=== PATIENT | female | born 1985 | race Caucasian/White ===

== ENCOUNTER 2023-05-19 11:22 | Outpatient (CLI) | payer OTHER, SELFPAY ==
[2023-05-19 12:17] LABS: Beta HCG Quantitative < 2.39 mIU/ML
== END 2023-05-19 11:23 | disposition home or self-care (01) ==
PROVIDERS: Visit Provider Obstetrics & Gynecology
DX: N93.9 Abnormal uterine and vaginal bleeding, unspecified (principal)
CPT/HCPCS: 36415; 84702

== ENCOUNTER 2023-07-08 09:39 | Emergency (ER) | payer OTHER, SELFPAY ==
--- NOTE | ~2023-07-08 | XR_ITS ---
EXAMINATION: XR chest 2V DATE: 07/08/2023 10:11 INDICATION: Shortness of breath and cough. TECHNIQUE: Frontal and lateral views of the chest were obtained. COMPARISON: None. FINDINGS: There are airspace opacities in posterior segment right upper lobe, consistent with pneumon ia. No pleural effusion or pneumothorax. The heart size is normal. IMPRESSION: 1. Right upper lobe pneumonia. Reviewed, dictated and finalized at location A.
--- NOTE | 2023-07-08 09:47 | ED.URI ---
HPI - URI/Sore Throat General Chief Complaint: Upper Respiratory Infection Stated Complaint: Cough,Congestion,Headache Time Seen by Provider: 07/08/23 10:18 Source: patient, RN notes reviewed and old records reviewed Mode of arrival: ambulatory Limitations: no limitations History of Present Illness HPI Narrative: 38-year-old female presents to the [facility] with complaints of cough, congestion and headache since either Monday or Monday 3-4 days. Reports that she was seen at a local emergency room, tested for flu and COVID which she reports as negative Reports fevers as high as 102. Has taken Mucinex as well as black elderberry Related Data Allergies Allergy/AdvReac Type Severity Reaction Status Date / Time No Known Allergies Allergy Unknown Verified 07/08/23 09:46 Review of Systems Review of Systems: All systems reviewed & are unremarkable except as noted in HPI and below Constitutional: Constitutional: Reports no additional constitutional complaints Eyes: Eyes: Reports no additional eye complaints ENT: Reports as per HPI Cardiovascular: Cardiovascular: Reports no additional cardiovascular complaints, Denies chest pain and Denies dyspnea Respiratory: Respiratory: Reports as per HPI, Reports chest congestion, Reports cough and Reports dyspnea Gastrointestinal: Gastrointestinal: Reports no additional gastrointestinal complaints, Denies abdominal pain, Denies nausea and Denies vomiting Musculoskeletal: Musculoskeletal: Reports no additional musculoskeletal complaints Integumentary/Breasts: Skin/Breast: Reports system reviewed and no additional complaints, except as docu Neurologic: Reports system reviewed and no additional complaints, except as documented Psychiatric: Psychiatric: Reports no additional psychiatric complaints Allergic/Immunologic: Allergic/Immunologic: Reports no additional allergic/immunologic complaints PMFSH Comments At the time of my signature, I reviewed and agree with the nursing past medical, surgical, social, and family history. There is no relevant family history pertinent to the patient complaint. Exam Const: General: cooperative, healthy appearing, comfortable, no acute distress, well developed, alert and well nourished Nutritional Appearance: well nourished and obese Orientation/consciousness: patient oriented x3 Limitations: no limitations HENMT: Head: normal to inspection Ears: hearing grossly normal bilaterally, external ears normal, TM's normal bilaterally, EAC's normal, mastoids normal and no periauricular adenopathy Face/Nose/Sinus: Normal external nose present, Normal nares present, Normal nasal mucous membranes and turbinates present, normal facial exam and face symmetric Face and sinus: normal facial exam and face symmetric Throat: posterior oropharynx normal, uvula midline and no uvular edema Eyes: General: appearance normal, both eyes and all related structures Alignment and Position: alignment normal Periorbital: periorbital findings normal Pupils: Equal, round and reactive pupils present EOM: EOMs intact bilaterally Neck: Neck: normal visual inspection, full ROM, no lymphadenopathy and no meningeal signs Chest: Chest palpation & inspection: normal inspection of the chest Resp: Effort & Inspection: normal respiratory effort and able to speak in complete sentences Auscultation: crackles on the right in the mid lung marks and in the upper lung marks, no rales, no rhonchi and no wheezes Cardio: Rate: regular rate Rhythm: regular rhythm Skin: General skin exam: normal color and no rashes or lesions noted Lesions: no lesions Rashes: no rashes Trauma: no lacerations or abrasions Wounds: no wounds Neuro: General: patient oriented x3, gait normal, tone normal, moves all extremities and no meningeal signs Cranial nerves: Yes Equal, round and reactive pupils present Cognition (Neuro): normal cognition Speech: normal speech Gait exam (Neuro): Normal gait present Ex
[2023-07-08 09:55] VITALS: BP 130/72; PULSE 95; RESP 16; TEMP 36.8; O2SAT 99
== END 2023-07-08 10:42 | disposition home or self-care (01) ==
PROVIDERS: Emergency Provider Nurse Practitioner
DX: J18.1 Lobar pneumonia, unspecified organism (principal); Z86.16 Personal history of COVID-19
CPT/HCPCS: 71046; 99213; G0463

== ENCOUNTER 2023-08-10 09:47 | Outpatient (CLI) | payer OTHER, SELFPAY | END 2023-08-10 09:48 | disposition home or self-care (01) | PROVIDERS: Visit Provider Obstetrics & Gynecology | DX: N92.0 Excessive and frequent menstruation with regular cycle (principal); Z01.818 Encounter for other preprocedural examination | CPT/HCPCS: 36415; 86850; 86900; 86901 ==

== ENCOUNTER 2023-08-16 00:19 | Day surgery (SDC) | payer OTHER, SELFPAY ==
[2023-08-09 14:42] VITALS: BMI 33.3
--- NOTE | 2023-08-09 14:48 | PC.NURSE ---
Report to the Outpatient Waiting Room, entrance under the green pavilion located off [facility], at time _0830_ on date _[id number]_. Planned Procedure Time: _1030_. Time changes happen often and if your time is changed the preop area will call you the afternoon before. - You and your visitor will be asked to self-screen and do not enter if you have any COVID symptoms. - A mask is optional within the hospital at this time. Patients may have clear liquids (water, carbonated beverages, clear teas, apple juice) until 3 hours prior to surgery with a maximum of 20 ounces. - No food from midnight until time of surgery Take the following medications with a SIP of water the morning of surgery: ___None DO NOT STOP ANY OF YOUR OTHER PRESCRIPTION MEDICATIONS PRIOR TO SURGERY ?EXCEPT THE FOLLOWING Medications to discontinue per physician None Date to take last dose Please no make-up, nail ukrainian, hairspray, perfume, deodorant, or body powder the day of surgery. No jewelry (including any body piercings) or valuables the day of surgery, leave them at home. Please take a shower or bath the night before, or the morning of, surgery with an antibacterial soap. Wear comfortable, loose fitting clothing. - Jewelry must be removed prior to entering the operating room. Rings and piercings that are not removed may be cut off. - The hospital will not accept responsibility for valuables. - Please leave all valuables, including medications, at home the day of surgery. If you are going home after surgery, a licensed services delivery driver must drive you home. - NO public transportation without another adult if you receive anesthesia. - We recommend that an adult stay with you for 24 hours following discharge. - We also recommend that you do not drive, make important decision, drink alcoholic beverages, or take any drugs that were not prescribed by your health care provider for at least 24 hours after your discharge time. Follow any additional instructions given to you from your surgeon. If you or anyone in your household have experienced Covid symptoms in the past week, please notify your surgeon or the nurse liaison at the phone number below for possible testing. Telephone instructions given to _Bernie_and asked if any additional questions and then verbalized understanding. Patient advised to call surgeon office or pre surgery nurse liaison [phone] if any additional questions.
[2023-08-16] VITALS (12 sets, daily range): BP systolic 101–152; BP diastolic 56–73; PULSE 64–85; RESP 12–20; TEMP 36.3–36.9; O2SAT 97–100; BMI 32.1
--- NOTE | 2023-08-16 08:58 | WPDANESEPPF ---
Anes - Initial Pre Proc Eval Procedure: Operation Date: 08/16/23 10:30 Proposed Procedures p Total Laparoscopic Hysterectomy with Bilateral Salpingectomy - Lasha Montero MD Date/Time: 08/16/23 08:58 Surgeon: Lasha Montero MD Pre Op Diagnosis: menorrhagia Patient Data Age: 38 Gender: F Height: 1.69 m Weight: 95 kg Allergies Allergy/AdvReac Type Severity Reaction Status Date / Time No Known Allergies Allergy Unknown Verified 08/09/23 14:42 Home Medications Medication Instructions Recorded Confirmed Type No Home Medications 08/09/23 08/09/23 History Patient hx anesthesia problems: none Family hx anesthesia problems: none Results Review: All pre-operative results and documents have been reviewed as part of the pre-operative evaluation. [facility] Social History Social History Smoking status: Never smoker Living arrangements: with family Spiritual care concerns: No Anes - Eval Final PreProcedure Day of Procedure 08/16/23 08:58 Patient weight: overweight Heart: regular rate and rhythm Lungs: clear to auscultation Airway: Mallampati scale class II Neurological: alert and oriented Last oral intake: >/= 8 hours ASA classification: II Emergent: no Anesthetic plan: proceed Anesthesia type and monitoring: general ETT and standard monitoring Results Review: All pre-operative results and documents have been reviewed as part of the pre-operative evaluation. Informed Consent: The patient's anesthetic plan and its attendant risks and benefits were discussed with the patient/family/POA. Questions were solicited and answers provided to the satisfaction of the patient/family/POA.
--- NOTE | 2023-08-16 09:08 | WPDHPUPDATE1 ---
History and Physical Update Update Date/Time: 08/16/23 09:08 History and Physical has been reviewed, including an updated exam of the patient. There are NO changes in the patient's condition. Risks, benefits, and alternatives have been discussed and questions answered. Patient agrees to proceed with procedure.
[2023-08-16] MEDS: LACTATED RINGERS 1,000 ML 30 ML IV CONT ×3 (09:10→11:45)
[2023-08-16] MEDS: KETOROLAC 15 MG/ML VIAL (*BKC) IV PUSH (09:19)
[2023-08-16] MEDS: ACETAMINOPHEN 500 MG TABLET 1000 MG PO (09:19)
[2023-08-16] MEDS: ceFAZolin 2 GM/D5W 50 ML 2 GM/50 ML BAG IVPB (09:34)
[2023-08-16] MEDS: ceFAZolin SODIUM 1 GM VIAL (10:04)
[2023-08-16] MEDS: METHYLENE BLUE 0.5% INJ 10 ML AMPULE IRRIGATION (10:47)
--- NOTE | 2023-08-16 11:34 | W.PM.PROC2 ---
Procedure Note - Detailed Date of Procedure 08/16/23 Pre-op Diagnosis menorrhagia Post-op Diagnosis Same Procedure Performed Total laparoscopic hysterectomy and bilateral salpingectomy. Surgeon Lasha Montero MD Anesthesia General Findings enlarged uterus, normal appearing fallopian tubes and ovaries. Normal vulva, vagina, cervix. Description of Procedure This patient was taken to the operating room. She was prepped and draped in the dorsal lithotomy position after induction of general anesthesia. The uterine manipulator and Katie cup were placed. This was done with a speculum and tenaculum. The speculum was placed. The cervix was grasped with a tenaculum. The stay sutures were placed at 3 and 9:00 a.m.. The stay sutures of 0 Vicryl were brought through the appropriately sized Katie cup. The tip of the TIMO manipulator was placed in the intrauterine cavity. The cup was slid into place around the cervix and into the fornices. It was locked into place. The sutures were then wrapped around the handle and tied under tension. A 5 mm skin incision was made in the left upper quadrant the abdomen. A 5 mm trocar was inserted into the intrauterine cavity under direct visualization of the scope. Pneumoperitoneum was achieved. A left lower quadrant 11 mm incision was made with scalpel. An 11 mm trocar was inserted into the anterior abdominal cavity under direct visualization the scope. A 5 mm infraumbilical incision was made with a scalpel and a 5 mm trocar was inserted the intra-abdominal cavity under direct visualization of the scope. Bilateral ureteral lysis was performed. This was done from the pelvic brim down to the uterine artery. This was done with careful dissection using sharp and blunt dissection. The fallopian tubes were removed bilaterally. The mesosalpinx around the fallopian tubes were cauterized transected with LigaSure cautery. This was done in a bilateral fashion from the ovary to the uterine cornua. The fallopian tube was transected at the uterine cornu and amputated bilaterally. The tube was taken out the left lower quadrant trocar site. In a stepwise fashion along the lateral aspects of the uterus the round ligament and broad ligaments were cauterized transected down to the level of the uterine arteries. A bladder flap was created in the bladder was moved distally to the end of the cervix and over the Katie cup. The bilateral uterine arteries were cauterized and transected. Colpotomy was then performed. In a circumferential fashion the vagina was transected using unipolar cautery. The incision was made down on the Katie cup. when the colpotomy was completed, the uterus and cervix were taken out through the vagina. A pneumo occluder was placed in the vagina. The vaginal cuff was closed with a 0 V lock suture in a running fashion. The pelvis was irrigated with copious amounts antibiotic irrigation. The ureters were again examined and found to be intact and flowing freely under the uterine arteries into the bladder. The bladder was intact. It was examined directly. Cystoscopy was performed after administration of methylene blue. The cystoscope was inserted. Bladder was distended with fluid. The ureteric meatus was observed bilaterally. Blue fluid was seen to egress bilaterally. The bladder was drained and the cystoscope was withdrawn. The vagina was irrigated with Betadine solution after removal of the Pneumo occluder. The patient was taken to recovery room. She was stable condition. Sponge lap and needle counts were correct x2. Drains Yes Packing No Pathology Yes Complications No immediate complications Condition Stable Disposition Floor
[2023-08-16] MEDS: ONDANSETRON INJ 4 MG/2 ML VIAL IV PUSH (12:08)
--- NOTE | 2023-08-16 12:30 | PC.NURSE ---
This patient, Bernie Melgar, was received from PACU on 08/16/23 at 1230. Patient oriented to unit policies and routines
[2023-08-16] MEDS: DEXTROSE 5%/0.45% SOD CHL 1,000 ML 125 ML IV CONT ×2 (12:40→21:20)
[2023-08-16] MEDS: KETOROLAC 30 MG/ML VIAL (*BKC) IV PUSH ×2 (12:54→18:52)
[2023-08-16] MEDS: diphenhydrAMINE HCl INJ 50 MG/ML VIAL 25 MG IV PUSH (14:14)
[2023-08-16] MEDS: SIMETHICONE 80 MG TAB.CHEW PO (18:52)
[2023-08-17 03:18] VITALS: BP 125/73; PULSE 73; RESP 12; TEMP 37.1; O2SAT 99
[2023-08-17] MEDS: HYDROcodone/acetaminophen (*CRX) 5-325 MG TABLET 1 TAB PO ×2 (05:12→09:06)
[2023-08-17] MEDS: SIMETHICONE 80 MG TAB.CHEW PO ×2 (05:13→09:06)
--- NOTE | 2023-08-17 08:34 | PM.GYNPNOP ---
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- PN:Subj Post-Op Subjective Date/time seen: 08/17/23 08:34 Subjective: patient reports feeling better, patient has no complaints and pain is well controlled Exam Const: General: healthy appearing, comfortable and no acute distress Resp: Auscultation: clear to auscultation bilaterally, no rales, no rhonchi and no wheezes Cardio: Rate: regular rate Heart sounds: no click, no murmurs and no rubs GI: Inspection: non-distended Auscultation: normal bowel sounds Extrem: General: normal to inspection, no pedal edema and no calf tenderness [employer]LL[employer] SK[employer] REPAIRER - PN: Obj Data Vital Signs Vital Signs: Vital Signs - 24 hr 08/16/23 08:45 08/16/23 11:18 08/16/23 11:30 Temperature 98.2 F 97.3 F L Pulse Rate 85 64 69 Respiratory Rate 14 14 13 Blood Pressure 121/66 121/56 L 110/64 Pulse Oximetry 100 98 97 Oxygen Delivery Room Air Simple Face Mask Simple Face Mask Oxygen Flow Rate 10 10 08/16/23 11:45 08/16/23 12:00 08/16/23 12:15 Temperature Pulse Rate 65 68 72 Respiratory Rate 13 19 18 Blood Pressure 152/73 H 101/60 106/61 Pulse Oximetry 97 99 100 Oxygen Delivery Room Air Room Air Room Air Oxygen Flow Rate 08/16/23 12:22 08/16/23 12:35 08/16/23 16:40 Temperature 97.7 F 98.5 F Pulse Rate 71 73 82 Respiratory Rate 20 16 16 Blood Pressure 103/58 L 105/68 113/70 Pulse Oximetry 99 100 97 Oxygen Delivery Room Air Oxygen Flow Rate 08/16/23 10:55 08/16/23 18:25 08/16/23 22:55 Temperature 98.4 F 98.3 F 98.4 F Pulse Rate 74 74 74 Respiratory Rate 18 12 18 Blood Pressure 131/68 125/60 131/68 Pulse Oximetry 97 99 97 Oxygen Delivery Oxygen Flow Rate 08/17/23 03:18 Temperature 98.8 F Pulse Rate 73 Respiratory Rate 12 Blood Pressure 125/73 Pulse Oximetry 99 Oxygen Delivery Oxygen Flow Rate Intake/Output Intake/Output: Intake & Output 08/14/23 08/15/23 08/16/23 08/17/23 23:59 23:59 23:59 23:59 Intake Total 2100 1400 Output Total 2575 1400 Balance -475 0 Meds/Results Medications: Active Medications Generic Name Dose Route Start Last Admin Trade Name Freq PRN Reason Stop Dose Admin Hydrocodone Bitart/Acetaminophen 1 tab 08/16/23 12:26 08/17/23 05:12 Hydrocodone/Acetaminophen (*Crx) 5-325 Mg Tablet PO 1 tab Q3H PRN Administration Pain Rated 5 or Less Hydrocodone Bitart/Acetaminophen 1 tab 08/16/23 12:26 Hydrocodone/Acetaminophen (*Crx) 10-325 Mg Tablet PO Q3H PRN Pain Rated 6 or Greater Ibuprofen 600 mg 08/16/23 12:26 Ibuprofen 600 Mg Tablet PO Q6H PRN Cramping Ketorolac Tromethamine 30 mg 08/16/23 12:26 08/16/23 18:52 Ketorolac 30 Mg/Ml Vial (*Bkc) IV PUSH 08/21/23 12:25 30 mg Q6H PRN Administration Pain Rated 4-6 Naloxone HCl 0.1 mg 08/16/23 12:26 Naloxone Hcl 0.4 Mg/Ml Vial IV PUSH Q2M PRN Respiratory rate less than 10 Ondansetron HCl 4 mg 08/16/23 12:26 Ondansetron Inj 4 Mg/2 Ml Vial IV PUSH Q6H PRN Nausea And Vomiting Simethicone 80 mg 08/16/23 12:26 08/17/23 05:13 Simethicone 80 Mg Tab.Chew PO 80 mg TIDWM CRISSY Administration
[2023-08-17 08:45] VITALS: BP 117/72; PULSE 80; RESP 16; TEMP 36.7; O2SAT 100
[2023-08-17] MEDS: IBUPROFEN 600 MG TABLET PO (09:07)
== END 2023-08-17 12:42 | disposition home or self-care (01) ==
LOC: ANHSURGERY 08:32 → ANHOB2 12:57
PROVIDERS: Visit Provider Obstetrics & Gynecology
PROC: 0UT9FZZ Resection of Uterus, Via Natural or Artificial Opening With Percutaneous Endoscopic Assistance (ICD-10-PCS; CPT 58571; principal; 2023-08-16 10:30)
DX: N92.0 Excessive and frequent menstruation with regular cycle (principal); N88.8 Other specified noninflammatory disorders of cervix uteri; N84.0 Polyp of corpus uteri; N83.8 Other noninflammatory disorders of ovary, fallopian tube and broad ligament
CPT/HCPCS: 58571; 36415; 86850; 86900; 86901; 88307; 99199; A9270; J0690; J1100; J1170; J1200; J1596; J1885; J2250; J2405; J2704; J3010; J7030; J7120; Q9968

== ENCOUNTER 2023-09-13 09:13 | Emergency (ER) | payer OTHER, SELFPAY ==
--- NOTE | 2023-09-13 09:56 | ED.GENADULT ---
HPI - General Adult General Stated complaint: jaw pain + diarrhea Source: patient, RN notes reviewed and old records reviewed Mode of arrival: ambulatory Limitations: no limitations History of Present Illness HPI narrative: patient left before vital signs were taken and before seen by provider. Reports that she wants to be seen by her dentist. She relayed this information to the x-ray tech before vital signs were taken Related Data Allergies Allergy/AdvReac Type Severity Reaction Status Date / Time No Known Allergies Allergy Unknown Verified 08/16/23 09:26 Review of Systems Review of Systems: unable to obtain All systems reviewed & are unremarkable except as noted in HPI and below Constitutional: Constitutional: Reports no additional constitutional complaints ENT: Reports system reviewed and no additional complaints, except as documented Cardiovascular: Cardiovascular: Reports no additional cardiovascular complaints Respiratory: Respiratory: Reports no additional respiratory complaints Gastrointestinal: Gastrointestinal: Reports no additional gastrointestinal complaints [facility] Social History Social History Smoking status: Never smoker Living arrangements: with family Spiritual care concerns: No Comments At the time of my signature, I reviewed and agree with the nursing past medical, surgical, social, and family history. There is no relevant family history pertinent to the patient complaint. Exam Narrative: patient left prior to physical exam Const: General: cooperative, no acute distress, alert and awake Orientation/consciousness: oriented to person, oriented to place and oriented to time HENMT: Head: normal to inspection Resp: Effort & Inspection: normal respiratory effort and able to speak in complete sentences Auscultation: clear to auscultation bilaterally, no crackles, no rales, no rhonchi and no wheezes Cardio: Palpation: normal PMI Rate: regular rate Rhythm: regular rhythm Heart sounds: S1 normal heart sound present and S2 normal heart sound present Neuro: General: oriented to person, oriented to place and oriented to time Cranial nerves: Yes CN's II-XII intact bilaterally Psych: Appearance: grossly normal Thought process: Normal thought process present Insight: Good insight present (Psych) Judgement: Good judgement present (Psych) Course Course Emergency Course: patient left before seeing provider Level of Care: Express Care Visit Vital Signs Vital signs: Reviewed Medical Decision Making MDM Narrative Medical decision making narrative: . Some parts of this dictation were generated by voice recognition software and may contain typographical and/or grammatical inaccuracies. Vital Signs Vital Signs: reviewed Lab Data Lab results narrative: reviewed Discharge Plan Discharge Patient Disposition: Left Without Being Seen Prescriptions: No Action oxycodone-acetaminophen 5-325 mg tablet 1 tablet PO Q4H PRN (Reason: pain) Qty: 25 0RF Follow-up/Referrals: PHYSICIAN,[employer]ISHER [Primary Care Provider] - Time of Disposition: 09:20
--- NOTE | 2023-09-13 12:57 | PC.NURSE ---
0920- H. Femi RT- went to perform vital signs and patient was on the phone with her dentist who she had been trying to contact. VS were not performed, pt states to HG, she wanted to go to her dentist and LWBS or triaged. This RN did not see pt nor do any assessments.
== END 2023-09-13 09:20 | disposition left against medical advice (07) ==
PROVIDERS: Emergency Provider Internal Medicine Hematology & Oncology; Referring Provider Emergency Medicine
DX: Z53.21 Procedure and treatment not carried out due to patient leaving prior to being seen by health care provider (principal)
CPT/HCPCS: 99199

== ENCOUNTER 2023-10-06 10:02 | Outpatient (CLI) | payer OTHER, SELFPAY ==
--- NOTE | ~2023-10-06 | MM_ITS ---
EXAMINATION: MM screening dino BI w deysi HISTORY: Screening TECHNIQUE: Craniocaudal and mediolateral oblique 3-D tomosynthesis images were obtained and synthetic 2-D images were generated. CAD analysis was submitted and interpreted. COMPARISON: No prior mammogram is available for comparison at this institution. BREAST PARENCHYMAL COMPOSITION: Not dense: There are scattered areas of fibroglandular density. FINDINGS: There is no evidence of suspicious mass, calcification, or architectural distortion to sugg est malignancy in either breast. There has been no suspicious interval change. IMPRESSION: 1. No mammographic evidence of malignancy. 2. Recommend routine screening mammography in one year. BI-RADS Category 1: Negative Reviewed, dictated and finalized at location B.
== END 2023-10-06 10:03 | disposition home or self-care (01) ==
LOC: ANHIMG 10:03
PROVIDERS: Visit Provider Nurse Practitioner Obstetrics & Gynecology
DX: Z12.31 Encounter for screening mammogram for malignant neoplasm of breast (principal)
CPT/HCPCS: 77063; 77067

== ENCOUNTER 2023-11-02 08:19 | Outpatient (CLI) | payer OTHER, SELFPAY ==
[2023-11-02 09:41] LABS: Basophils Percent Auto 0.4 % (0.2-1.2); Eosinophils Absolute Auto 0.3 K/mm3 (0-0.3); Eosinophils Percent Auto 3.9 % (0-4.4); Hemoglobin 12.7 g/dL (12.0-15.0); Immature Granulocyte Absolute 0.03 K/mm3 (0.00-0.031); Immature Granulocyte Percent A 0.4 % (0-0.5); Lymphocytes Absolute Auto 2.69 K/mm3 (0.9-3.2); Lymphocytes Percent Auto 31.5 % (18.3-44.2); Mean Corpuscular HGB Conc 32.6 g/dl (32-36); Mean Corpuscular Hemoglobin 29.5 pg (26-34); Mean Corpuscular Volume 90.5 fl (80-100); Mean Platelet Volume 10.3 fl (7.4-10.4); Monocytes Absolute Auto 0.5 K/mm3 (0.1-0.6); Monocytes Percent Auto 6.2 % (2.6-8.5); Neutrophils Absolute Auto 4.9 K/mm3 (1.3-6.7); Neutrophils Percent Auto 57.6 % (45.5-73.1); Platelet Count Result 354 k/mm3 (150-375); Red Blood Count 4.31 M/mm3 (4.2-5.4); Red Cell Distribution Width 14.1 % (11.5-14.5); White Blood Count 8.5 K/mm3 (4.5-10.0)
[2023-11-02 09:52] LABS: Hemoglobin A1C 5.5 % (<5.7)
[2023-11-02 09:55] LABS: Alanine Aminotransferase 12 U/L (6-35); Albumin Level 4.1 g/dL (3.5-5.1); Alkaline Phosphatase 65 U/L (38-126); Anion Gap 9 mmol/L (4-12); Aspartate Amino Transferase 19 U/L (14-36); Bilirubin,Total 0.9 mg/dL (0.2-1.3); Blood Urea Nitrogen 13 mg/dL (7-17); Calcium 8.8 mg/dL (8.4-10.2); Carbon Dioxide 26 mmol/L (22-30); Chloride 104 mmol/L (98-107); Cholesterol 179 mg/dL (0-200); Estimated Glomerular Filt Rate > 60; Glucose 90 mg/dL (65-110); HDL Direct 41 mg/dL; Potassium 4.1 mmol/L (3.4-5.0); Sodium 139 mmol/L (137-145); Triglycerides 138 mg/dL (<150)
[2023-11-02 10:06] LABS: LDL Cholesterol Direct 106 mg/dL
== END 2023-11-02 08:20 | disposition home or self-care (01) ==
LOC: ANHLAB 08:21
PROVIDERS: Visit Provider Nurse Practitioner Family
DX: R19.7 Diarrhea, unspecified (principal); Z00.00 Encounter for general adult medical examination without abnormal findings; Z76.89 Persons encountering health services in other specified circumstances; Z68.33 Body mass index [BMI] 33.0-33.9, adult
CPT/HCPCS: 36415; 80053; 80061; 82274; 83036; 83993; 84443; 85025; 87045; 87177; 87209; 87427; 87449

== ENCOUNTER 2023-11-03 08:05 | Outpatient (CLI) | payer OTHER, SELFPAY ==
[2023-11-03 08:52] LABS: IFOB Positive Control Positive; Immunochemical Fecal Occult Bl Negative (N)
[2023-11-09 15:39] LABS: Calprotectin, Stool 33 mcg/g
== END 2023-11-03 08:06 | disposition home or self-care (01) ==
LOC: ANHLAB 08:06
PROVIDERS: Visit Provider Nurse Practitioner Family
DX: R19.7 Diarrhea, unspecified (principal)
CPT/HCPCS: 82274; 83993; 87045; 87177; 87209; 87427; 87449

== ENCOUNTER 2023-12-09 16:02 | Emergency (ER) | payer OTHER, SELFPAY ==
--- NOTE | 2023-12-09 16:07 | ED.GENADULT ---
HPI - General Adult General Chief complaint: Urogenital-Female Stated complaint: uti symptoms Time Seen by Provider: 12/09/23 16:07 Source: patient Mode of arrival: ambulatory Limitations: no limitations History of Present Illness HPI narrative: 38-year-old female patient presents to [facility] with complaints of urinary symptoms that started yesterday. Patient states she had pain with urination that started yesterday, low back pain. Patient states she has had some nausea but denies vomiting or diarrhea. Denies fevers, body aches or chills. Related Data Allergies Allergy/AdvReac Type Severity Reaction Status Date / Time No Known Allergies Allergy Unknown Verified 12/09/23 16:05 Review of Systems Review of Systems: CONSTITUTIONAL: Denies fever, chills, or sweats. EYES: Denies visual changes, redness, or discharge. ENT: Denies rhinorrhea, congestion, sore throat, or otalgia. CARDIOVASCULAR: Denies chest pain, palpitations, or edema. RESPIRATORY: Denies cough or dyspnea. GASTROINTESTINAL: positive lower suprapubic pain, denies abdominal pain, nausea, vomiting, or diarrhea. GENITOURINARY: Positive dysuria or hematuria. SKIN: Denies rash or itching. MUSCULOSKELETAL: Denies back pain, joint pain, or myalgia. NEUROLOGIC: Denies headache, numbness, or weakness. PSYCHIATRIC: Denies anxiety or depression. PMFSH Past Medical History Medical History Chronic constipation Social History Social History Smoking status: Never smoker Living arrangements: with family Spiritual care concerns: No Comments At the time of my signature I agree with nursing past medical history, surgical, social, and family history. There is no relevant family history pertinent to the presenting complaint. Exam Narrative: GENERAL: Well-appearing, well-nourished, and in no acute distress. HEAD: Normocephalic, atraumatic. EYES: PERRLA and EOMI. ENT: Nares clear, no rhinorrhea or epistaxis. Mucous membranes moist. NECK: Supple. No lymphadenopathy CHEST: Clear to auscultation. No respiratory distress. HEART: Regular rate and rhythm. No murmur heard. Normal peripheral pulses. ABDOMEN: Soft, nontender, nondistended, normal active bowel sounds. no CVA tenderness on percussion. Suprapubic pain or palpitation. EXTREMITIES: Normal range of motion. No edema. SKIN: Warm, dry, no rash. NEURO: No focal deficits. Alert and oriented x3. Course Course Level of Care: Express Care Visit Vital Signs Vital signs: Vital Signs Temperature 36.6 C 12/09/23 16:13 Pulse Rate 85 12/09/23 16:13 Respiratory Rate 16 12/09/23 16:13 Blood Pressure 115/76 12/09/23 16:13 Pulse Oximetry 99 12/09/23 16:13 Oxygen Delivery Room Air 12/09/23 16:13 Temperature 36.6 C 12/09/23 16:13 Pulse Rate 85 12/09/23 16:13 Respiratory Rate 16 12/09/23 16:13 Blood Pressure 115/76 12/09/23 16:13 Pulse Oximetry 99 12/09/23 16:13 Oxygen Delivery Room Air 12/09/23 16:13 Vital signs reviewed. Medical Decision Making MDM Narrative Medical decision making narrative: Plan care patient is discharged home with oral antibiotics. Discussed with her we will send the urine off to the lab for culture if the culture shows she needs a different type of antibiotic will call her and change at that time. Patient verbalized understanding denies any other questions or concerns at this time. Differential Diagnosis Differential Diagnosis: Differential diagnosis: Uncomplicated lower UTI, uncomplicated UTI, pyelonephritis Vital Signs Vital Signs: Vital Signs Temperature 36.6 C 12/09/23 16:13 Pulse Rate 85 12/09/23 16:13 Respiratory Rate 16 12/09/23 16:13 Blood Pressure 115/76 12/09/23 16:13 Pulse Oximetry 99 12/09/23 16:13 Oxygen Delivery Room Air 12/09/23 16:13 Temperature 36.6 C 12/09/23 16:13 P
[2023-12-09 16:13] VITALS: BP 115/76; PULSE 85; RESP 16; TEMP 36.6; O2SAT 99
[2023-12-09 16:21] LABS: EDUAAPPEAR Cloudy; EDUABILI Negative (Negative); EDUABLOOD 2+ (Negative); EDUACOLOR1 Yellow; EDUAGLUCOSE Negative (Negative); EDUAKETONE Negative (Negative); EDUALEUKO 2+ (Negative); EDUANITRATE Positive (Negative); EDUAPH 6.5; EDUAPROTEIN 2+ (Negative); EDUAUROBILI 0.2
== END 2023-12-09 16:29 | disposition home or self-care (01) ==
PROVIDERS: Emergency Provider Nurse Practitioner Family; PCP Nurse Practitioner Family
DX: N30.01 Acute cystitis with hematuria (principal); B96.20 Unspecified Escherichia coli [E. coli] as the cause of diseases classified elsewhere
CPT/HCPCS: 81003; 87086; 87186; 99213; G0463

== ENCOUNTER 2024-03-27 00:36 | Day surgery (SDC) | payer OTHER, SELFPAY ==
[2024-03-20 09:39] VITALS: BMI 32.9
--- NOTE | 2024-03-20 09:40 | PC.NURSE ---
Report to the Outpatient Waiting Room, entrance under the green pavilion located off [facility], at time _0600_ on date _[id number]_. Planned Procedure Time: _0730_.? Time changes happen often and if your time is changed the preop area will call you the afternoon before. - You and your visitor will be asked to self-screen and do not enter if you have any COVID symptoms. Please call surgeon if you need to reschedule. - A mask is optional within the hospital at this time. Patients may have clear liquids (water, carbonated beverages, clear teas, apple juice) until 3 hours prior to surgery with a maximum of 20 ounces. - No food from midnight until time of surgery and no smoking. This includes no chewing gum, candy or mints. Take only the following medications with a SIP of water on the morning of surgery: ___None DO NOT STOP ANY OF YOUR OTHER PRESCRIPTION MEDICATIONS PRIOR TO SURGERY EXCEPT THE FOLLOWING Medications to discontinue per physician ___None Date to take last dose Please no make-up, nail french, hairspray, perfume, deodorant, or body powder the day of surgery.? No jewelry (including any body piercings) or valuables the day of surgery, leave them at home.? Please take a shower or bath the night before, or the morning of, surgery with an antibacterial soap.? Wear comfortable, loose fitting clothing.? - Jewelry must be removed prior to entering the operating room.? Rings and piercings that are not removed may be cut off. - The hospital will not accept responsibility for valuables.? - Please leave all valuables, including medications, at home the day of surgery. If you are going home after surgery, a licensed construction driver must drive you home.? - NO public transportation without another adult if you receive anesthesia. - We recommend that an adult stay with you for 24 hours following discharge. - We also recommend that you do not drive, make important decision, drink alcoholic beverages, or take any drugs that were not prescribed by your health care provider for at least 24 hours after your discharge time. Hold all vitamins and supplements for 3 days per anesthesiologist. Follow any additional instructions given to you from your surgeon. Telephone instructions given to _Bernie_and asked if any additional questions and then verbalized understanding. Patient advised to call surgeon office or pre surgery nurse liaison [phone] if any additional questions
[2024-03-27] VITALS (11 sets, daily range): BP systolic 98–130; BP diastolic 50–70; PULSE 60–71; RESP 13–20; TEMP 36.1–36.6; O2SAT 94–100; BMI 32.3
--- OUTSIDE RECORDS SUMMARY | 2024-03-27 00:48 | XMS_ITS | Data Portability ---
Author Organization [facility] Address [address] [place] [address] Assessment No assessment recorded. 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 2024 08:30A M ULTRASOUND Not available Not available Not available U/S F/U 2024 09:00A Javed MONTERO MD Not available Not available Not available Lab dhea-hartley lfate, serum 2024 025 [facility] (Lab), [address] [place], [address], 03/06/2024 20:19:23 hormone panel, serum or plasma 2024 025 [facility] (Lab), [address], [place], [address], 03/06/2024 20:19:23 progest erone, serum 2024 025 [facility] (Lab), [address] [place], [address], 03/06/2024 20:19:22 prolact in, serum 2024 025 [facility] (Lab), [address], [place], [address], 03/06/2024 20:19:22 shbg (sex hormone -bindin g globuli n), serum 2024 025 [facility] (Lab), [address] [facility], [place], [address], 03/06/2024 20:19:24 testost erone free/te stoster one total, ratio, serum 2024 025 [facility] (Lab), [address] [facility], [place], [address], 03/06/2024 20:19:24 TSH, serum or plasma 2024 025 [facility] (Lab), [address] [facility], [place], [address], 03/06/2024 20:19:23 urinaly sis, dipstic k 2024 025 [email or web address] [place], [address], [place], [address], 03/15/2024 10:16:20 unliste d lab - 17-oh progest erone, lc/MS/M S 2024 025 [facility] (Lab), [address] [place], [address], 03/21/2024 04:20:05 dhea-hartley lfate, serum 2024 025 [facility] (Lab), [address] [facility], [place], [address], 03/21/2024 04:20:03 hormone panel, serum or plasma 2024 025 [facility] (Lab), [address] [place], [address], 03/21/2024 04:20:04 HbA1c (hemogl obin A1c), blood 2024 025 [facility] (Lab), [address] , [place], [address], 03/21/2024 04:20:03 progest erone, serum 2024 025 [facility] (Lab), [address] , [place], [address], 03/21/2024 04:20:03 prolact in, serum 2024 025 [facility] (Lab), [address], [place], [address], 03/21/2024 04:20:04 shbg (sex hormone -bindin g globuli n), serum 2024 025 [facility] (Lab), [address] , [place], [address], 03/21/2024 04:20:05 testost erone free/te stoster one total, ratio, serum 2024 025 [facility] (Lab), [address] [facility], [place], [address], 03/21/2024 04:20:05 TSH, serum or plasma 2024 025 [facility] (Lab), [address], [place], [address], 03/21/2024 04:20:04 Referral None recorde d. Procedures None recorde d. Surgeries revisio n of scar (SURG) 2024 025 [facility], [address], [place], [address], 03/25/2024 19:40:26 Imaging US, pelvis 2024 025 [email or web address] [place], [facility] [address], [place], [address], 03/05/2024 22:18:35 US, transva ginal 2024 025 [email or web address] [place] [facility] [address], [place], [address], 03/05/2024 22:18:35 US, pelvis, complet e 2024 025 [email or web address] [place] , [address], [place], [address], 03/26/2024 12:35:13 Medication Orders None recorde d. Patient TargetsNo targets recorded. Patient InstructionsNo instructions recorded. Reason for Referral None Reported. Results Created Date Observation Date Name Description Value Unit Range Abnormal Flag Note LastModifiedBy Organization Detail LastModifiedTime 01/24/20 24 01/24/2024 [facility], GRACIE gerry species, tma Negati ve negati ve Not Available [facility] (Lab) [address] [facility], [place], [address], 01/26/2024 09:31:08 01/24/20 24 01/24/2024 [facility]OM[facility] 'S HEALT H SWAB, GRACIE gerry glabrata, tma Negati ve negati ve Not Available [facility] (Lab) [address] [facility], [place], [address], 01/26/2024 09:31:08 01/24/20 24 01/24/2024 WOMEN 'S HEALT H SWAB, GRACIE trichomonas vaginalis, tma Negati ve negati ve This assay tests for and diffe renti ates betwe en Latisha da glabr sharon, the Latisha da speci es group (C. albic ans, C. tropi calis , C. parap antonio is, C. dubli niens is), and Trich omona s vagin josse by Trans cript ion-M ediat ed Ampli ficat ion (TMA) . Not Available [facility] (Lab) [address], [place], [address], 01/26/2024 09:31:08 01/24/20 24 01/24/2024 [facility]OM[facility] HE[facility] H SWAB, GRACIE bacterial vaginosis (bv), tma Positi ve negati ve abnormal This test detec ts ribos omal RNA from bacte lorenzo assoc iated with bacte rial vagin osis (BV), inclu ding Lacto bacil augusto (L. gasse ri, L. crisp atus and L. jense magdaleno), Gardn erell a vagin josse, and Atopo bium vagin ae by Trans cript ion-M ediat ed Ampli ficat ion (TMA) . A singl e quali tativ e resul t is repor jordan based on instr ument softw are to deter mine BV posit sunitha or negat sunitha statu s. Not Available [facility] (Lab) [address] [facility], [place], [address], 01/26/2024 09:31:08 01/24/20 24 01/24/2024 CULTU RE: URINE result report SEE RESULT S BELOW Test: Cultu re: Urine Speci men Sourc e: Urine - Clean Catch Speci men Type: Urine Speci men Date: 2023 1742 Resul t Date: 2023 0825 Resul t Statu s: Final resul t Abnor mal: No Resul ting Lab: [facility] [address] [facility] [address] Tel: [phone] CULTU RE ----- ----- ----- --- Cultu re resul t (>=3 organ isms prese nt) indic ates possi ble conta minat ion. Repea t cultu re if sympt oms indic ate. Not Available [facility] (Lab) [address] [facility], [place], [address], 01/26/2024 09:31:09 02/28/19 25 02/29/2024 PROGE STERO NE progesterone 8.51 NG/mL This assay was perfo rmed using [employer] ratio n reage nts and test kits. Value s obtai abundio with other assay metho ds or kits canno t be used inter [facility] . Femal e Proge stero ne Range s: Folli cular phase 0.06- 0.89 ng/mL Ovula tion phase 0.12- 12.00 ng/mL Lutea l phase 1.83- 23.90 ng/mL Postm enopa usal <0.05 -0.13 ng/mL Healt hy Pregn ant Women 1st Trime ster 11.0- 44.30 2nd Trime ster 25.40 -83.3 0 3rd Trime ster 58.70 -214. 00 Not Available [facility] (Lab) [address] [place], [address], 03/06/2024 20:19:22 02/28/19 25 02/29/2024 PROLA CTIN prolactin, total 28.00 NG/mL 4.79-2 3.30 high This assay was perfo rmed using [employer] ratio n reage nts and test kits. Value s obtai abundio with other assay metho ds or kits canno t be used inter [facility] . Not Available [facility] (Lab) [address] [facility], [place], [address], 03/06/2024 20:19:22 02/28/19 25 02/29/2024 FSH, LH, ESTRA DIOL estradiol 118.0 pg/mL This assay was perfo rmed using [employer] ratio n reage nts and test kits. Value s obtai abundio with other assay metho ds or kits canno t be used inter [facility] . Femal e Estra diol Range s: Folli cular phase 12.4- 233 pg/mL Ovula tion phase 41.0- 398 pg/mL Lutea l phase 22.3- 341 pg/mL Postm enopa usal <5-13 8 pg/mL Healt hy Pregn ant Women 1st Trime ster 154-3 243 pg/mL 2nd Trime ster 1561- 56786 pg/mL 3rd Trime ster 8525- >3000 0 pg/mL Not Available [facility] (Lab) [address] [place], [address], 03/06/2024 20:19:23 02/28/19 25 02/29/2024 FSH, LH, ESTRA DIOL FSH 4.7 mIU/m L This assay was perfo rmed using [employer] ratio n reage nts and test kits. Value s obtai abundio with other assay metho ds or kits canno t be used inter [facility] . Femal es Folli cular : 3.5-1 2.5 mIU/m L Ovula tion: 4.7-2 1.5 mIU/m L Lutea l: 1.7-7 .7 mIU/m L Postm enopa use: 25.8- 134.8 mIU/m L Not Available [facility] (Lab) [address] [facility], [place], [address], 03/06/2024 20:19:23 02/28/19 25 02/29/2024 FSH, LH, ESTRA DIOL LH 10.0 mIU/m L This assay was perfo rmed using [employer] ratio n reage nts and test kits. Value s obtai abundio with other assay metho ds or kits canno t be used inter [facility] . Femal es Mid-F ollic ular: 2.4-1 2.6 mIU/m L Mid-C ycle: 14.0- 95.6 mIU/m L Mid-L uteal : 1.0-1 1.4 mIU/m L Postm enopa use: 7.7-5 8.5 mIU/m L Not Available [facility] (Lab) [address], [place], [address], 03/06/2024 20:19:23 02/28/19 25 02/29/2024 TSH, REFLE X FREE T4 TSH 1.21 uIU/m L 0.30-5 .33 Not Available [facility] (Lab) [address] [facility], [place], [address], 03/06/2024 20:19:23 02/28/19 25 02/29/2024 DHEA SULFA TE DHEA-sulfate 108 ug/dL Femal e Range s Age(y ) Range (ug/d L) 10-15 34-28 0 15-20 65-36 8 20-25 148-4 07 25-35 99-34 0 35-45 61-33 7 45-55 35-25 6 55-65 19-20 5 65-75 9-246 > 75 12-15 4 Not Available [facility] (Lab) [address] [facility], [place], [address], 03/06/2024 20:19:23 02/28/19 25 02/29/2024 HUMAN SEX HORMO NE FREDIS NG GLOBU LIDYA sex hormone binding globulin 53.5 nmole s/L 18.2-1 35.5 Not Available [facility] (Lab) [address] [facility] [address], [place], [address], 03/06/2024 20:19:23 02/28/19 25 02/29/2024 TESTO STERO NE, FREE( DIALY SIS) AND TOTAL (LC/M S/MS) testosterone , total 24 NG/dL 2-45 For addit ional infor shant enriquez e refer to http: //shaka cuellar.que stdia gnost ics.c om/fa q/ Total Testo stero neLCM SMSFA Q165 (This link is being provi ded for infor merly ayala/ educa reyes l purpo ses only. ) This test was devel oped and its jaguar tical perfo rmanc e marisela cteri stics have been deter mined by [facility] jesse s Jonatan Phillipsi keyur [place], [place]. It has not been clear ed or appro edmund by the U.S. Food and Drug Admin istra tion. This assay has been valid ated pursu ant to the CLIA regul ation s and is used for clini fabiola purpo ses. Not Available [facility] (Lab) [address] [place], [address], 03/06/2024 20:19:24 02/28/1902/29/2024 TESTO STERO NE, FREE( DIALY SIS) AND TOTAL (LC/M S/MS) testosterone , free 2.7 pg/mL 0.1-6. 4 This test was paola mahajan and its jaguar tical perfo rmanc e marisela cteri stics have been deter mined by [employer] [facility] Jonatan [place], [place]. It has not been clear ed or appro edmund by the U.S. Food and Drug Admin istra tion. This assay has been valid ated pursu ant to the CLIA regul ation s and is used for clini fabiola purpo ses. Perfo rming Organ izati on Infor matsony n: Site ID: AMD Name: [employer] ostic s Jonatan ls [facility] Addre ss: [id number] [address] [place], [place] Direc tor: Jv Melendez MD PhD Not Available [facility] (Lab) [address] , [place], [address], 03/06/2024 20:19:24 03/15/1903/15/2024 CULTU RE: URINE result report SEE RESULT S BELOW Test: Cultu re: Urine Speci men Sourc e: Urine - Clean Catch Speci men Type: Urine Speci men Date: 2024 1047 Resul t Date: 2024 0536 Resul t Statu s: Final resul t Abnor mal: No Resul ting Lab: [facility] [address] [facility] [address] Tel: CULTU RE ----- ----- ----- --- No growt h in 1 day (dete ction level of 10,00 0 colon ies / ml.) Not Available [facility] (Lab) [address] , [place], [address], 03/17/2024 06:41:27 03/15/19 25 03/15/2024 HEMOG LOBIN A1C hemoglobin A1C 5.6 % 4.0-5. 6 The Ameri can Diabe yanelis Assoc iatio n recom mends that a prima ry goal of thera py cheo card be a HBA1C of < 7% and that physi cians shoul d reeva luate the treat ment regim en in patie nts with HBA1C value s consi stent ly > 8%. <5.7% Salome l 5.7 - 6.4% Incre ased risk for diabe yanelis >=6.5 % Diagn ostic of diabe yanelis <7.0% Goal of thera py >8.0% Actio n sugge sted Not Available [facility] (Lab) [address], [place], [address], 03/21/2024 04:20:03 03/15/19 25 03/15/2024 DHEA SULFA TE DHEA-sulfate 97 ug/dL Femal e Range s Age(y ) Range (ug/d L) 10-15 34-28 0 15-20 65-36 8 20-25 148-4 07 25-35 99-34 0 35-45 61-33 7 45-55 35-25 6 55-65 19-20 5 65-75 9-246 > 75 12-15 4 Not Available [facility] (Lab) [address], [place], [address], 03/21/2024 04:20:03 03/15/19 25 03/15/2024 PROGE STERO NE progesterone 0.14 NG/mL This assay was perfo rmed using [employer] ratio n reage nts and test kits. Value s obtai abundio with other assay metho ds or kits canno t be used inter [facility] . Femal e Proge stero ne Range s: Folli cular phase 0.06- 0.89 ng/mL Ovula tion phase 0.12- 12.00 ng/mL Lutea l phase 1.83- 23.90 ng/mL Postm enopa usal <0.05 -0.13 ng/mL Healt hy Pregn ant Women 1st Trime ster 11.0- 44.30 2nd Trime ster 25.40 -83.3 0 3rd Trime ster 58.70 -214. 00 Not Available [facility] (Lab) [address], [place], [address], 03/21/2024 04:20:03 03/15/19 25 03/15/2024 PROLA CTIN prolactin, total 24.60 NG/mL 4.79-2 3.30 high This assay was perfo rmed using [employer] ratio n reage nts and test kits. Value s obtai abundio with other assay metho ds or kits canno t be used inter [facility] . Not Available [facility] (Lab) [address] [facility], [place], [address], 03/21/2024 04:20:04 03/15/19 25 03/15/2024 FSH, LH, ESTRA DIOL estradiol 101.0 pg/mL This assay was perfo rmed using [employer] ratio n reage nts and test kits. Value s obtai abundio with other assay metho ds or kits canno t be used inter [facility] . Femal e Estra diol Range s: Folli cular phase 12.4- 233 pg/mL Ovula tion phase 41.0- 398 pg/mL Lutea l phase 22.3- 341 pg/mL Postm enopa usal <5-13 8 pg/mL Healt hy Pregn ant Women 1st Trime ster 154-3 243 pg/mL 2nd Trime ster 1561- 20866 pg/mL 3rd Trime ster 8525- >3000 0 pg/mL Not Available [facility] (Lab) [address] [facility], [place], [address], 03/21/2024 04:20:04 03/15/19 25 03/15/2024 FSH, LH, ESTRA DIOL FSH 5.3 mIU/m L This assay was perfo rmed using [employer] ratio n reage nts and test kits. Value s obtai abundio with other assay metho ds or kits canno t be used inter [facility] . Femal es Folli cular : 3.5-1 2.5 mIU/m L Ovula tion: 4.7-2 1.5 mIU/m L Lutea l: 1.7-7 .7 mIU/m L Postm enopa use: 25.8- 134.8 mIU/m L Not Available [facility] (Lab) [address] [place], [address], 03/21/2024 04:20:04 03/15/19 25 03/15/2024 FSH, LH, ESTRA DIOL LH 7.9 mIU/m L This assay was perfo rmed using [employer] Corpo ratio n reage nts and test kits. Value s obtai abundio with other assay metho ds or kits canno t be used inter [facility] eably . Femal es Mid-F ollic ular: 2.4-1 2.6 mIU/m L Mid-C ycle: 14.0- 95.6 mIU/m L Mid-L uteal : 1.0-1 1.4 mIU/m L Postm enopa use: 7.7-5 8.5 mIU/m L Not Available [facility] (Lab) [address] [place], [address], 03/21/2024 04:20:04 03/15/19 25 03/15/2024 TSH, REFLE X FREE T4 TSH 1.45 uIU/m L 0.30-5 .33 Not Available [facility] (Lab) [address] [place], [address], 03/21/2024 04:20:04 03/15/19 25 03/15/2024 HUMAN SEX HORMO NE FREDIS NG GLOBU LIDYA sex hormone binding globulin 47.6 nmole s/L 18.2-1 35.5 Not Available [facility] (Lab) [address] [place], [address], 03/21/2024 04:20:05 03/15/19 25 03/15/2024 TESTO STERO NE, FREE( DIALY SIS) AND TOTAL (LC/M S/MS) testosterone , total 23 NG/dL 2-45 For addit ional infor shant enriquez e refer to http: //edu catio n.que stdia gnost ics.c om/fa q/ Total Testo stero neLCM SMSFA Q165 (This link is being provi ded for [facility]/ educa reyes l purpo ses only. ) This test was devel oped and its jaguar tical perfo rmanc e marisela cteri stics have been deter mined by [employer] ostjay [facility] Jonatan ls [employer] [place], [place]. It has not been clear ed or appro edmund by the U.S. Food and Drug Admin istra tion. This assay has been valid ated pursu ant to the CLIA regul ation s and is used for clini fabiola purpo ses. Not Available [facility] (Lab) [address] [place], [address], 03/21/2024 04:20:05 03/15/19 25 03/15/2024 TESTO STERO NE, FREE( DIALY SIS) AND TOTAL (LC/M S/MS) testosterone , free 2.7 pg/mL 0.1-6. 4 This test was devel oped and its jaguar tical perfo rmanc e marisela cteri stics have been deter mined by [employer] ostjay [facility] Jonatan ls [place], [place]. It has not been clear ed or appro edmund by the U.S. Food and Drug Admin istra tion. This assay has been valid ated pursu ant to the CLIA regul ation s and is used for clini fabiola purpo ses. Perfo rming Organ izati on [facility] n: Site ID: AMD Name: [facility]idy jesse agustin Jonatan ls Inst[facility] tute Addre ss: [id number] [facility] [place] [address] [employer] [place], [place] Direc tor: Jv Melendez MD PhD Not Available [facility] (Lab) [address] [place], [address], 03/21/2024 04:20:05 03/15/19 25 03/15/2024 17-OH PROGE STERO NE 17-hydroxypr ogesterone, lc/MS/MS 15 NG/dL Adult Femal e Refer ence Range s for 17-Hy droxy proge stero ne: Pre-M enopa usal Mid Folli cular : 23-10 2 ng/dL Pre-M enopa usal Surge : 67-34 9 ng/dL Pre-M enopa usal Mid Lutea l: 139-4 31 ng/dL Postm enopa usal Phase : < or = 45 ng/dL Pregn dionne: First Trime ster: 78-45 7 ng/dL Secon d Trime ster: 90-35 7 ng/dL Third Trime ster: 144-5 78 ng/dL This test was devel oped and its jaguar tical perfo rmanc e marisela cteri stics have been deter mined by [facility]. It has not been clear ed or appro edmund by FDA. This assay has been valid ated pursu ant to the CLIA regul ation s and is used for clini fabiola purpo ses. Perfo rming Organ izati on Infor matio n: Site ID: [id number] Name: [email or web address] Constance molina s/Jordan price [facility] [place] , Addre ss: [id number] [address] [place] [address] Direc tor: Lisseth aguila MD,Ph D,ANDREA Not Available [facility] (Lab) [address] [facility], [place], [address], 03/21/2024 04:20:05 03/15/19 25 03/15/2024 urina lysis , dipst ick Leukocytes ++ Not Available [facility] [address], [place], [address], 03/15/2024 10:15:43 03/15/19 25 03/15/2024 urina lysis , dipst ick Protein + Not Available [place] [address], [place], [address], 03/15/2024 10:15:43 03/15/19 25 03/15/2024 urina lysis , dipst ick pH 5 Not Available [place] [address], [place], [address], 03/15/2024 10:15:43 03/15/19 25 03/15/2024 urina lysis , dipst ick Blood +++ Not Available [place] [address], [place], [address], 03/15/2024 10:15:43 03/15/19 25 03/15/2024 urina lysis , dipst ick Specific [place] 1.025 Not Available [facility] [address], [place], [address], 03/15/2024 10:15:43 03/15/19 25 03/15/2024 urina lysis , dipst ick Ketone + Not Available [place] [address], [place], [address], 03/15/2024 10:15:43 03/05/19 25 03/05/2024 US, pelvi s No observ ation record ed. [email or web address] [place] [address], [place], [address], 03/05/2024 18:17:40 03/05/19 25 03/05/2024 US, trans vagin al No observ ation record ed. [email or web address] [place] [address], [place], [address], 03/05/2024 18:17:50 03/05/19 25 03/05/2024 US, pelvi s No observ ation record ed. [email or web address] [address], [place], [address], 03/12/2024 18:07:41 Result Notes None recorded. Problems Name Problem SNOMED Code Status Onset Date Resolution Date Notes Provider Name and Address Organization Details Recorded Time Speciali zed medical examinat ion Active 2011 Routine gynecolo gical examinat ion;Prac juanjose ID: 0001 Not Available [facility] 0 15:23:57 Screenin g for malignan t neoplasm of cervix Active 2011 Pap Smear;Pr actice ID: 0001 Not Available [facility] 0 15:23:57 Dysuria 46444689 Active 2011 Dysuria; Practice ID: 0001 [facility] Available [facility] 0 15:23:57 Cytologi c finding 695544335 Active 2011 Pap Abnormal LGSIL;Pr actice ID: 0001 Not Available [facility] 0 15:23:57 Chest pain 93231214 Active 2012 Unspecif ied chest pain;Pra ctice ID: 0001 Not Available [facility] 0 15:23:[address] Concept Active 2016 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 ) w/o abn findings ;Practic e ID: 0001 Not Available [facility] 0 15:23:57 Secondar y amenorrh ea 303666328 Active 2017 Secondar y amenorrh ea;Pract ice ID: 0001 Not Available [facility] 0 15:23:57 Pregnanc y detectio n examinat ion Active 2017 Encounte r for pregnanc y test, result positive ;Practic e ID: 0001 Not Available [facility] 0 15:23:57 Pregnanc y, childbir th and puerperi um finding Active 2017 Encounte r for supervis ion of normal 1st pregnanc y;Record ed Elsewher e: No Locat ion: [facility] S ource: EHR New Order Clerk jordan: N Practi ce ID: 0001 Zohaib lable Time: 02:15:00 PM Not Available [facility] 0 15:23:57 Gestatio nal diabetes mellitus 70826716 Active 2017 Gestatio nal diabetes mellitus in pregnanc y, diet controll ed;Recor ded Elsewher e: No Locat ion: [facility] S ource: EHR New Order Clerk jordan: N Practi ce ID: 0001 Zohaib lable Time: 02:30:00 PM Not Available [facility] 0 15:23:57 Rubella screenin g status 818638942 Active 2017 Encounte r for antenata l screenin g, unspecif ied;Janusz rded Elsewher e: No Locat ion: [facility] S ource: EHR New Order Clerk jordan: N Domenic ce ID: 0001 Zohaib lable Time: 08:30:00 AM Not Available [facility] 0 15:23:57 Pregnanc y, childbir th and puerperi um finding Active 2017 Encntr for suprvsn of normal first preg, second trimeste r;Record ed Elsewher e: No Locat ion: [facility] S ource: EHR New Order Clerk jordan: N Domenic ce ID: [id number] Zohaib lable Time: 11:30:00 AM Not Available [facility] 0 15:23:57 Pregnanc y-induce d hyperten jon Active 2017 Gestatio nal hyperten jon w/o signific ant proteinu lorenzo, 1st trimeste r;Record ed Elsewher e: No Locat ion: [facility]itk ray[facility] S ource: EHR New Order Clerk jordan: N Domenic ce ID: 0001 Zohaib lable Time: 01:00:00 PM Not Available [facility] 0 15:23:58 Normal pregnanc y in multigra dionne [id number] 4106 Active 2017 Encounte r for supervis ion of other normal pregnanc y, first trimeste r;Record ed Elsewher e: No Locat ion: [facility]anicola servin [facility] S ource: EHR New Order Clerk jordan: N Domenic ce ID: 0001 Zohaib lable Time: 01:30:00 PM Not Available [facility] 0 15:23:58 Gestatio n period, 36 weeks 40532141 Active 2017 36 weeks gestatio n of pregnanc y;Record ed Elsewher e: No Locat ion: [facility]aisi rayne [facility] S ource: EHR New Order Clerk jordan: N Domenic ce ID: 0001 Zohaib lable Time: 01:30:00 PM Not Available [facility] 0 15:23:58 Past pregnanc y history of gestatio nal diabetes mellitus [id number] Active 2017 Personal history of gestatio nal diabetes ;Recorde d Elsewher e: No Locat ion: Fabian servin [facility] S ource: EHR New Order Clerk jordan: N Practi ce ID: [id number] Zohaib lable Time: 11:30:00 AM Not Available [facility] 0 15:23:58 Gestatio n period, 37 weeks [id number] Active 2017 37 weeks gestatio n of pregnanc y;Record ed Elsewher e: No Locat ion: Randanicola rayne [facility] S ource: EHR New Order Clerk jordan: N Practi ce ID: [id number] Zohaib lable Time: 01:30:00 PM Not Available [facility] 0 15:23:58 Screenin g for malignan t neoplasm of cervix Completed 201011/01/2011 Screenin g for malignan t neoplasm s of the cervix;R ecorded Elsewher e: No Locat ion: [facility]ian servin [facility] S ource: EHR New Order Clerk jordan: N Valentinati ce ID: 0001 Zohaib lable Time: 10:30:00 AM Not Available [facility] 0 15:23:58 Gestatio n period, 34 weeks 30797220 Active 2017 34 weeks gestatio n of pregnanc y;Record ed Elsewher e: No Locat ion: Randanicola rayne [facility] S ource: EHR New Order Clerk jordan: N Practi ce ID: 0001 Zohaib lable Time: 03:00:00 PM Not Available [facility] 0 15:23:58 Acute vaginiti s 06787545 Active 2017 Acute vaginiti s;Record ed Elsewher e: No Locat ion: [facility] S ource: EHR New Order Clerk jordan: N Practi ce ID: 0001 Zohaib lable Time: 03:00:00 PM Not Available [facility] 0 15:23:58 Single live 896837831 Active 2017 Single live ;Re corded Elsewher e: No Locat ion: [facility] Source: EHR New Order Clerk jordan: N Practi ce ID: 0001 Zohaib lable Time: 09:30:00 AM Not Available [facility] 0 15:23:59 Microsco pic hematuri a 471014796 Active 2011 MICROSCO PIC HEMATURI A;Record ed Elsewher e: No [facility] S ource: EHR New Order Clerk jordan: N Practi ce ID: 0001 Zohaib lable Time: 08:30:00 AM Not Available [facility] 0 15:23:59 Antenata l screenin g for malforma tion Active 2017 Encounte r for antenata l screenin g for malforma tions;Re corded Elsewher e: No Locat ion: [facility] rayne [facility] S ource: EHR New Order Clerk jordan: N Practi ce ID: 0001 Zohaib lable Time: 10:00:00 AM Not Available [facility] 0 15:23:59 Gestatio n period, 33 weeks 31892640 Active 2017 33 weeks gestatio n of pregnanc y;Record ed Elsewher e: No Locat ion: Monica rayne [facility] S ource: EHR New Order Clerk jordan: N Practi ce ID: 0001 Zohaib lable Time: 01:00:00 PM Not Available [facility] 0 15:23:59 Mild hypereme sis gravidar um 52510605 Active 2017 Hypereme sis gravidar um starting before the end of the 20th week of gestatio n;Record ed Elsewher e: No Locat ion: [facility] rayne [facility] S ource: EHR New Order Clerk jordan: N Practi ce ID: 0001 Zohaib lable Time: 02:30:00 PM Not Available [facility] 0 15:24:00 Pregnanc y test negative 661616843 Active 2011 Negative Pregnanc y Test;Pra ctice ID: 0001 Not Available [facility] 0 15:24:00 Urinary tract infectio us disease 60207640 Active 2011 Urinary tract infectio n, site not specifie d;Practi ce ID: 0001 Not Available [facility] 0 15:24:00 Gestatio n period, 38 weeks 53844832 Active 2017 38 weeks gestatio n of pregnanc y;Record ed Elsewher e: No Locat ion: [facility] S ource: EHR New Order Clerk jordan: N Practi ce ID: 0001 Zohaib lable Time: 01:45:00 PM Not Available [facility] 0 15:24:01 Elevated blood-pr essure reading without diagnosi s of hyperten jon 048178354 Active 2017 Elevated blood-pr essure reading, without diagnosi s of hyperten jon;Rec orded Elsewher e: No Locat ion: [facility] S ource: EHR New Order Clerk jordan: N Practi ce ID: 0001 Zohaib lable Time: 10:45:00 AM Not Available [facility] 0 15:24:01 Antenata l screenin g Active 2017 Encounte r for other antenata l screenin g follow-u p;Record ed Elsewher e: No Locat ion: [facility] S ource: EHR New Order Clerk jordan: N Valentinati ce ID: 0001 Zohaib lable Time: 02:30:00 PM Not Available [facility] 0 15:24:01 Gestatio n period, 32 weeks 5646330 Active 2017 32 weeks gestatio n of pregnanc y;Record ed Elsewher e: No Locat ion: [facility] S ource: EHR New Order Clerk jordan: N Valentinati ce ID: 0001 Zohaib lable Time: 01:30:00 PM Not Available [facility] 0 15:24:01 Blood leukocyt e number above referenc e range 070606601 Active 2017 Elevated white blood cell count, unspecif ied;Janusz rded Elsewher e: No Locat ion: [facility] S ource: EHR New Order Clerk jordan: N Practi ce ID: 0001 Zohaib lable Time: 11:30:00 AM Not Available [facility] 0 15:24:01 Body mass index 30+ - obesity 185532238 Active 2017 Body mass index (BMI) 32.0-32. 9, adult;Re corded Elsewher e: No Locat ion: [facility] S ource: EHR New Order Clerk jordan: N Practi ce ID: 0001 Zohaib lable Time: 01:00:00 PM Not Available [facility] 0 15:24:02 Gestatio nal diabetes mellitus in childjose a th [id number] 181482 Active 2017 Gestatio nal diabetes mellitus in childjose a th, diet controll ed;Recor ded Elsewher e: No Locat ion: [facility] S ource: EHR New Order Clerk jordan: N Valentinati ce ID: 0001 Zohaib lable Time: 03:15:00 PM Not Available [facility] 0 15:24:02 Pregnanc y, childbir th and puerperi um finding Active 2017 Encntr for suprvsn of normal first preg, third trimeste r;Record ed Elsewher e: No Locat ion: [facility] S ource: EHR New Order Clerk jordan: N Valentinati ce ID: 0001 Zohaib lable Time: 02:15:00 PM Not Available [facility] 0 15:24:[address] Concept Active 2016 Encntr for general adult medical exam w/o abnormal findings ;Recorde d Elsewher e: No Locat ion: [facility] S ource: EHR New Order Clerk jordan: N Valentinati ce ID: 0001 Zohaib lable Time: 09:30:00 AM Not Available [facility] 0 15:24:03 Gestatio n period, 8 weeks 06792505 Active 2017 8 weeks gestatio n of pregnanc y;Record ed Elsewher e: No Locat ion: [facility] S ource: EHR New Order Clerk jordan: N Valentinati ce ID: 0001 Zohaib lable Time: 01:45:00 PM Not Available [facility] 0 15:24:03 Large fetus 459150549 Active 2017 Maternal care for excess growth, third trimeste r, unsp;Rec orded Elsewher e: No Locat ion: [facility] S ource: EHR New Order Clerk jordan: N Valentinati ce ID: 0001 Zohaib lable Time: 01:30:00 PM Not Available [facility] 0 15:24:03 Gestatio n period, 28 weeks 49486625 Active 2017 28 weeks gestatio n of pregnanc y;Record ed Elsewher e: No Locat ion: [facility] S ource: EHR New Order Clerk jordan: N Practi ce ID: 0001 Zohaib lable Time: 01:00:00 PM Not Available [facility] 0 15:24:04 Asymptom atic bacteriu lorenzo in pregnanc y 24764096 Active 2017 Unsp infct of urinary tract in pregnanc y, second trimeste r;Practi ce ID: 0001 Not Available [facility] 0 15:24:06 Gestatio n period, 17 weeks 79238879 Active 2017 17 weeks gestatio n of pregnanc y;Practi ce ID: 0001 Not Available [facility] 0 15:24:06 Gestatio n period, 29 weeks 16766595 Active 2017 29 weeks gestatio n of pregnanc y;Practi ce ID: 0001 Not Available [facility] 0 15:24:08 Gestatio n less than 9 weeks 929181202 Active 2017 Less than 8 weeks gestatio n of pregnanc y;Practi ce ID: 0001 Not Available [facility] 0 15:24:09 Notes:Unsp infct of urinary tract in , first trimester Practice ID: [id number] Problem Notes None recorded. Procedures Surgical History Date Name Laterality Status Provider Name and Address Organization Details Recorded Time 08/16/19 24 Hysteroscopy completed Leonela Ramos [facility] 08/21/2023 12:33:58 08/16/19 24 Total Hysterectomy completed Leonela Richard [facility] 02/29/2024 15:23:03 06/06/19 24 Date of Last Pap Smear completed Leonela Ramos [facility] 08/10/2023 10:16:57 04/19/19 22 Tubal Ligation completed Blanca [facility] 06/06/2023 10:12:26 04/19/19 22 Caesarean Section completed [facility] 06/06/2023 10:12:26 02/20/19 21 Colposcopy completed [facility] 06/06/2023 10:18:44 11/17/19 14 Appendectomy completed [facility] 06/06/2023 10:12:26 11/17/[address] [facility] 12/20/2023 12:22:23 02/20/19 07 Dilation and Curettage completed [facility] 06/06/2023 10:08:[address] [facility] 12/20/2023 12:24:36 Imaging Results Imaging Date Name Status LastModified by Organization Details LastModified Time 03/05/2024 US, pelvis completed [email or web address] [place] [facility] [address], [place], [address], 03/05/2024 18:17:40 03/05/2024 [email or web address] [address], [place], [address], 03/05/2024 18:17:50 03/05/2024 US, pelvis completed [email or web address] [facility] [address], [place], [address], 03/12/2024 18:07:41 Procedure Notes None recorded. Medical Equipment None Reported. Allergies No known drug allergies Medications Name Sig Start Date Stop Date Status Note LastModified by Organization Details LastModified Time Toprol XL 25 mg tablet,ex tended release take 1 tablet by oral route every day 03/13 completed Prescrib ed Elsewher e: Yes Loca tion: [facility] M odify By: kosta bradshawuntjanis DateTime : 03/08/19 13 01:45:00 PM Not Available Not Available Not Available fluconazo le 150 mg tablet take 1 tablet by oral route once every other week 12/04 completed Prescrib ed Elsewher e: No Locat ion: [facility] odify By: kosta atkinson DateTime : 12/05/19 18 09:30:00 AM Not Available Not Available Not Available Lotrisone 1 %-0.05 % topical cream apply by topical route 2 times every day for 2 weeks to the affected and surround ing areas of skin in the morning and evening 12/04 completed Prescrib ed Elsewher e: No Locat ion: [facility] Modify By: kosta bradshaw DateTime : 12/05/19 18 09:30:00 AM Not Available Not Available Not Available Pyridium 200 mg tablet Take 1 tablet 3 times a day by oral route. 01/23 completed Not Available Not Available Not Available clobetaso l 0.05 % topical cream APPLY THIN LAYER TOPICALL Y TO THE AFFECTED AREA TWICE DAILY 12/19 completed Not Available Not Available Not Available clindamyc in HCl 150 mg capsule 12/19 completed Not Available Not Available Not Available metronida zole 500 mg tablet take 1 tablet by oral route every 12 hours for 7 days 01/23 completed Not Available Not Available Not Available doxycycli ne monohydra te 100 mg tablet TAKE 1 TABLET BY MOUTH TWICE DAILY 08/09 completed Not Available Not Available Not Available oxycodone -acetamin ophen 5 mg-325 mg tablet Take 1 tablet every 6 hours by oral route. 12/19 completed Not Available Not Available Not Available dicyclomi ne 20 mg tablet 12/19 completed Not Available Not Available Not Available Cipro 500 mg tablet take 1 tablet (500MG) by oral route every 12 hours 03/13 completed Prescrib ed Elsewher e: No [facility] By: [email or web address] Servin ncojanis DateTime : 07/28/19 13 03:13:05 PM Not Available Not Available Not Available Humulin N NPH U-100 Insulin (isophane susp) 100 unit/mL subcutane ous inject 10 units by Intrader mal route at bedtime 12/04 completed Prescrib ed Elsewher e: No Locat ion: [facility]ian servin [facility] odify By: kosta bradshawuntjanis DateTime : 10/25/19 18 02:00:00 PM Not Available Not Available Not Available Zofran ODT 8 mg disintegr ating tablet place 1 tablet by translin gual route every 8 hours for 2 days on top of the tongue where it will dissolve , then swallow 04/25 completed Prescrib ed Elsewher e: No Locat ion: Monica rayne [facility] odify By: [email or web address] Encount er DateTime : 04/25/19 18 03:00:00 PM Not Available Not Available Not Available diclofena c sodium 75 mg tablet,de layed release take 1 tablet (75MG) by oral route 2 times every day 03/13 completed Prescrib ed Elsewher e: No Locat ion: [facility] serv[facility] odify By: kosta bradshawuntjanis DateTime : 03/08/19 13 01:45:00 PM Not Available Not Available Not Available hydroxyzi ne HCl 25 mg tablet 12/19 completed Not Available Not Available Not Available methylpre dnisolone 4 mg tablets in a dose pack 12/19 completed Not Available Not Available Not Available Vitamin D2 1,250 mcg (50,000 unit) capsule take 1 capsule by oral route every week 03/13 completed Prescrib ed Elsewher e: No Locat ion: [facility] odify By: kosta atkinson DateTime : 07/26/19 17 04:12:02 PM Not Available Not Available Not Available ParaGard T 380A 380 square mm intrauter ine device 10/31 completed Prescrib ed Elsewher e: Yes Loca tion: [facility] serv[facility] odify By: wil alvarado DateTime : 07/20/19 12 08:30:00 AM Not Available Not Available Not Available insulin syringe needleles s 1 mL inject units subq route at night 12/04 completed Prescrib ed Elsewher e: No Locat ion: [facility] odify By: kosta bradshawunter DateTime : 10/10/19 18 01:53:22 PM Not Available Not Available Not Available Tindamax 500 mg tablet take 4 tablet (2G) by oral route every day for 2 days with food 03/09 completed Prescrib ed Elsewher e: No Locat ion: [facility] odify By: [email or web address] Encount er DateTime : 03/08/19 12 02:52:23 PM Not Available Not Available Not Available nitrofura ntoin monohydra te/macroc rystals 100 mg capsule Take 1 capsule twice a day by oral route for 7 days. 03/06 completed Not Available Not Available Not Available Clindesse 2 % vaginal cream,ext ended release insert 1 applicat orful by vaginal route once 08/31 completed Prescrib ed Elsewher e: No [facility] By: kathi Encounte r DateTime : 04/25/19 18 03:00:00 PM Not Available Not Available Not Available Vandazole 0.75 % (37.5 mg/5 gram) vaginal gel insert 1 applicat orful by vaginal route for 5 nights at bedtime 03/15 completed Not Available Not Available Not Available Benadryl Allergy 12/19 completed Not Available Not Available Not Available cephalexi n 750 mg capsule take 1 capsule by oral route 2 times every day 12/04 completed Prescrib ed Elsewher e: No Locat ion: [facility] odify By: kosta bradshawunter DateTime : 06/16/19 18 08:30:00 AM Not Available Not Available Not Available Diclegis 10 mg-10 mg tablet,de layed release take 1 tablet by oral route every day in the morning, 1 tablet in the mid-afte rnoon, and 2 tablets at bedtime 12/04 completed Prescrib ed Elsewher e: No Locat ion: [facility] servin [facility] odify By: kosta bradshawuntjanis DateTime : 05/31/19 18 01:30:00 PM Not Available Not Available Not Available Gummy 400 mcg-35 mg-25 mg-5 mg chewable tablet Take one table by oral route daily 12/04 completed Prescrib km Guerrero e: Maria Esther Locat ion: [facility] Javed colby By: kosta atkinson DateTime : 09/05/19 10:21:04 AM Not Available Not Available Not Available Vitals Date Recorded Body height Body mass index (BMI) Body weight Systolic blood pressure Diastolic blood pressure Provider Name and Address Organization Details Last Updated DateTime 01/24/2024 168.91 cm 33.2 kg/m2 03049.81 g 116 mm[Hg] 79 mm[Hg] [facility] 4 15:56:28 Date Recorded Body height Body mass index (BMI) Body weight Systolic blood pressure Diastolic blood pressure Provider Name and Address Organization Details Last Updated DateTime 02/29/2024 168.91 cm 33.9 kg/m2 64774.17 g 114 mm[Hg] 74 mm[Hg] [facility] 5 15:20:43 Date Recorded Body height Body mass index (BMI) Body weight Systolic blood pressure Diastolic blood pressure Provider Name and Address Organization Details Last Updated DateTime 03/06/2024 168.91 cm 32.9 kg/m2 49127.62 g 120 mm[Hg] 79 mm[Hg] [facility] 5 11:38:27 Date Recorded Body height Body mass index (BMI) Body weight Systolic blood pressure Diastolic blood pressure Provider Name and Address Organization Details Last Updated DateTime 03/15/2024 168.91 cm 32.9 kg/m2 17307.62 g 126 mm[Hg] 59 mm[Hg] [facility] 5 10:13:03 Social History Question Answer Notes LastModified by Organizat ion Details LastModified Time Tobacco Smoking Status Never Smoker Blanca gavin [facility] 06/06/2023 10:08:48 Do You Have An Advance Directive? No Information not available 06/06/2023 What Is Your Level Of Alcohol Consumption? Occasional Information not available 06/06/2023 Are You Blind Or Do You Have Difficulty Seeing? No Information not available 06/06/2023 What Is Your Level Of Caffeine Consumption? None Information not available 06/06/2023 How Much Tobacco Do You Chew? None Information not available 06/06/2023 In The 14 Days Before Symptom Onset, Have You Had Close Contact With A Laboratory-confir med COVID-19 While That Case Was Ill? No Information not available 06/06/2023 In The 14 Days Before Symptom Onset, Have You Had Close Contact With A Person Who Is Under Investigation For COVID-19 While That Person Was Ill? No Information not available 06/06/2023 Have You Been To An Area Known To Be High Risk For COVID-19? No Information not available 06/06/2023 Are You Deaf Or Do You Have Serious Difficulty Hearing? No Information not available 06/06/2023 What Type Of Diet Are You Following? REGULAR Information not available 06/06/2023 What Is The Highest Grade Or Level Of School You Have Completed Or The Highest Degree You Have Received? [id number] Information not available 06/06/2023 What Is Your Occupation? Stay At Home Mom Information not available 06/06/2023 Are There Any Guns Present In Your Home? Yes [email or web address] Information not available 12/20/2023 Do You Use Protection During Sex? No Information not available 06/06/2023 Do You Use Your Seat Belt Or Car Seat Routinely? Yes Information not available 06/06/2023 Do You Have Smoke And Carbon Monoxide Detectors In Your Home? Yes Information not available 06/06/2023 How Much Tobacco Do You Smoke? No Information not available 06/06/2023 Do You Feel Stressed (tense, Restless, Nervous, Or Anxious, Or Unable To Sleep At Night)? [id number] Information not available 06/06/2023 Do You Use Any Illicit Or Recreational Drugs? No Information not available 06/06/2023 Do You Use Sunscreen Routinely? No Information not available 06/06/2023 How Many Years Have You Smoked Tobacco? 0 Information not available 06/06/2023 Have You Used IV Drugs? No [email or web address] Information not available 06/19/2023 Sex: Unknown Functional Status Question Answer Note LastModified by Organizat ion Details LastModified Time Do you have difficulty walking or climbing stairs? No Information not available 06/06/2023 Are you able to walk? YESWOREST Information not available 06/06/2023 Are you able to care for yourself? Yes Information not available 06/06/2023 Do you have difficulty dressing or bathing? No Information not available 06/06/2023 What is your exercise level? Occasional Information not available 06/06/2023 Mental Status None recorded. Family History Relationship Description Onset Age of this Age Resolved Age Notes LastModified by Organization Details LastModified Time Brother Asthma Not available 0 06/06/2023 10:07:21 Father Heart disease Not available 2023 10:12:11 Father Diabetes mellitus Not available 2023 10:12:12 Mother Hypertensive disorder Not available 2023 10:12:12 Mother Anxiety disorder Not available 2023 10:12:12 Mother Depressive disorder Not available 2023 10:12:12 Sister Hypertensive disorder Not available 2023 10:12:12 Sister Pre-eclampsi a Not available 2023 10:12:12 Paternal Grandmother Heart disease Not available 2023 10:12:12 Maternal Grandfather Heart disease Not available 2023 10:12:12 Paternal Grandfather Heart disease Not available 2023 10:12:12 Medical History Condition Response Allergies (Food, seasonal, environmental ) N Other N Breast Cancer N Drug/Latex Allergies/Reactions N Blood Transfusion N Lung Disease N Dermatologic Disorders N Defects or Inherited Disease N Breast Problem N Gestational Diabetes Y Hematologic disorders N Anesthesia Complications N History of STI N Deep Vein Thrombosis N Polycystic ovary syndrome N Anxiety Disorder N Autoimmune disease N Arthritis N Polyps N Infertility N History of abnormal pap Y Acid Reflux (GERD) N Cancer N Varicosities N Stroke N Neurologic/Epilepsy N Endometriosis N High Cholesterol N Fibromyalgia N Headaches N Kidney Disease N Heart Problems N Kidney or Bladder Problems N Thyroid Problems N GI Problems N Eating Disorder N Anemia N Art (IVF or FET) N Psychiatric Illness N Ovarian Cancer N Diabetes N Pulmonary (TB, Asthma) N Hepatitis/Liver Disease N No Past Medical History N Eczema N Urinary Tract Infection N Abuse/Domestic Violence N Asthma N Trauma/Violence N Depression/ depression Y Heart Disease N Pre-Eclampsia N Hypertension N Osteoporosis N Thrombophilias N Gynecological History Statement/Question Response Abnormal Pap Yes Flow Heavy Date of LMP 07/30/2023 N Was last menstrual period normal N STIs/STDs Y HPV Vaccine Y Duration of Flow (days) 7 Current Control Method Hysterectom y Age at First Child 33 Are cycles usually normal Y Frequency of Cycle (Q days) 30 Sexually Active? Y None Menses Monthly Y Age of first menstrual cycle 17 Date of Last Pap Smear 06/06/2023 Sexual Problems? N Desired Control Method Hysterectom y LMP Definite N Obstetrics History GPAL:G 3 P 1 1 1 2 Type Value Full Term 1 Spontaneous 1 Premature 1 Living 2 Total 3 Past Encounters Encounter ID Performer Location Encounter Start Date Encounter Closed Date Diagnosis/Indication Diagnosis SNOMED-CT Code Diagnosis ICD10 Code Diagnosis Note [id number] [facility] [address] [address] 06/06/2023 10:04:35 06/07/2023 05:08:57 Gynecologic examination [id number] Z01.419 Take Calcium with Vitamin D 1200mg daily if not receiving in daily diet. It is strongly advised to have an annual flu shot and up can obtain at most pharmacies . If you have not had a TDap shot in the last 10 years you should obtain one as well. Discussed with patient & provided with informatio n regarding Gardisil vaccine to prevent the 4 strains for HPV that cause cervical cancer if under age 26. Encourage safe sexual practices, to use condoms and limit partners if not already in a monogamous relationsh ip. Do monthly self breast exams. Have mammogram yearly or every other year depending on family history. BRCA testing is now available for patients with strong genetic history of female cancer. If interested contact the office. Engage in daily exercise of low impact aerobic exercise 45-60 minutes 4-5 times weekly. Avoid tobacco and illicit drugs as well as using moderation with alcohol intake less than 1-2 8 oz beverages daily. This lifestyle behavior pattern will lead to less health conditions and longer life span. If BMI greater than 25 weight watchers or dietary consult advised. Patient received above instructio ns, and questions have been answered. If you have any questions please call or respond to this email. Patient was made aware of the patient portal and may obtain a paper copy of today's plan if desired. Pap/hpv sent STD Screen declined Genetic Screen discussed Colon Screen na Dexa Screen na Routine Labs ordered but PCP referral given. Adult heal th examination [id number] Z00.00 Screening mammography 24 [id number] Z12.31 Z14.8 Abnormal u terine bleeding [id number] 9100 N93.9 Today an US was ordered to ensure no other issues that could contribute to clots with her last cycle.Will reach out with result. [id number] Estella Nation [place] [address],[place] [address] 06/08/2023 14:28:07 06/08/2023 17:03:52 Abnormal uterine bleeding [id number] 9100 N93.9 [id number] Lasha Montero MD [place] [address],[place] [address] 06/19/2023 16:00:45 06/20/2023 02:28:29 Pain in pelvis 91315949 R10.2 Pelvic mass [id number] R19 .00 Dyspareunia 47261466 N94 .10 Uterine leiomyoma 870406 05 D25.9 Lesion of endometrium 92 21243550 9101 N85.9 Menorrhagia 549108300 N9 2.0 This patient is a 38-year-ol d female presents for heavy vaginal bleeding. She has longstandi ng very heavy bleeding. Her menses are regular. However, they require double protection . Patient has accidents, getting blood on her bedding and clothing. Is affected work. She changes a pad or tampon every hour. She leaks blood around the pad and tampon. This bleeding has a profound impact on her quality of life and her activities of daily living. discussed the patient's ultrasound evaluation . She has a large intra uterine mass. It was about 3 cm. There was also a right pelvic mass near the right ovary. It is hyperechoi c. Patient has severe pelvic pain is right-side d pain is worse at the time of her bleeding. It is becoming worse over time. It has been present for more than a year. It is constant with worsening at the time of her menses. We discussed all these findings. We spent over 40 minutes face-to-fa ce. More than 50% was counseling . Made a decision to perform surgery. Patient would like definitive surgical therapy for the menorrhagi a and mass. We agreed to move forward with total laparoscop ic hysterecto my bilateral salpingect josé miguel. She has a myomatous uterus and severe menorrhagi a along with pelvic pain. [id number] Lasha Montero MD [place] [address],[place] [address] 08/10/2023 10:08:35 08/10/2023 17:49:45 Menorrhagia [id number] N92.0 this patient is a 38-year-ol d female with severe menorrhagi a. we have agreed to perform total laparoscop ic hysterecto my bilateral salpingect josé miguel. She understand s the risks, benefits, and alternativ es. She has completed the informed consent process and is ready to proceed. [id number] Lasha Montero MD [place] [address],[facility] [place] [address] 08/21/2023 12:19:51 08/21/2023 13:04:45 Postoperative care [id number] Z48.89 female Patient presents for postop follow-up. She is 1 week postop from a total laparoscop ic hysterecto my bilateral salpingect josé miguel. She has no complaints . Her incisions are clean dry and intact. She is recovering normally. She will follow-up as needed. [id number] [facility] [address],[place] [address] 11/07/2023 14:00:32 11/07/2023 14:09:52 Vaginal irritation 703345731 N89.8 [id number] ANTHONY HERNANDEZ NP [place] [address],[place] [address] 12/20/2023 11:52:27 12/20/2023 13:08:59 Urinary symptoms 556663478 R39.9 Repeat urine culture collected to evaluate for UTI. Patient requests to wait until urine culture results come back before starting another antibiotic .Rx for Pyridium sent. Vaginal odor [id number] N 89.8 BV/yeast/t rich testing sent to r/o infection. Discussed vulvar care guidelines in addition to laundry/sk in irritants to avoid. [id number] Lasha Montero MD [place] [address],[place] [address] 01/24/2024 15:28:47 01/24/2024 16:29:35 Urinary symptoms 670404625 R39.9 Acute urin romeo tract infection 096984046 N39.0 Bacterial vaginosis 4197 62643 N76.0 Vaginal va ult bleeding 978412572 N93.9 39-year-ol d female with urinary symptoms, vaginal bleeding, foul-smell ing vaginal discharge. Patient has had recurrent episodes of foul-smell ing vaginal discharge. The discharge is excessive great colored. Swab was taken. Patient will be treated for BV. We talked about the antibiotic treatment. We are going to treat every month for 6 months. Talked about the risks, benefits, and alternativ es. We agreed to the precaution s and instructio ns. Patient has urinary symptoms. She has urinary urgency and frequency. Urine dip showed blood and leukocytes . We agreed to treat for urinary tract infection. We talked about the antibiotic s. We end we talked about the risks, benefits, and alternativ es. We discussed precaution s and instructio ns. Vagina was examined for the vaginal bleeding. There was granulatio n tissue at the vaginal cuff. It was cauterized with silver nitrate. She will follow up in 3 weeks for examinatio n of the vagina. [id number] Lasha Montero MD [place] [address],[place] [address] 02/29/2024 15:09:45 02/29/2024 16:03:20 Abnormal uterine bleeding [id number] 9100 N93.9 Dyspareunia 22852188 N94 .10 Galactorrh ea due to non-obstetric cause 419025969 N64.3 39-year-ol d female who presents for persistent , pain with intercours e, vaginal bleeding post hysterecto my. Patient has small amounts clear discharge from the nipples bilaterall y. She does report some nipple stimulatio n during intercours e. She denies any headache or blurry vision or vision changes. Agreed to check labs, more specifical ly a prolactin. Patient has pain with intercours e. She has deep penetratio n pain in the pelvis. It is on the left side. Patient still has her ovaries. We agreed to pelvic ultrasound and to follow-up. We talked about we talked about her irregular bleeding. Her bleeding is spotting. It is intermitte nt. We previously treated some granulatio n tissue on the vaginal cuff. She has granulatio n tissue present again of the midline on the vaginal cuff. We used silver nitrate to attempt to obliterate the Abnormal tissue. I spent over 30 minutes on her care. She will follow up after ultrasound . [id number] [facility] [address],[place] [address] 03/05/2024 16:31:26 03/05/2024 17:47:12 Abnormal uterine bleeding [id number] 9100 N93.9 N94.10 [id number] Lasha Montero MD [place] [address] [address] 03/06/2024 11:20:53 03/06/2024 12:19:51 Pain in pelvis 56079932 R10.2 this patient is a 39-year-ol d female Who presents for follow-up on ultrasound . She has had chronic pelvic pain since her hysterecto my. She has got granulatio n tissue at the middle portion of the vaginal cuff. This may represent a chronic inflammati on that is full-thick ness of the vagina and subsequent adhesion formation behind the vaginal cuff. She has had granulatio n tissue ablated with silver nitrate sticks twice now. If after each time she experience s nausea and abdominal discomfort . Ultrasound revealed a hemorrhagi c cyst on the right. Her pain is primarily on the left. Normal ovary on the left. She is status post laparoscop ic hysterecto my. We agreed to observe her bleeding and pain. We will repeat pelvic ultrasound to follow the 4 cm/3 cm hemorrhagi c ovarian cyst on the right side. I spent over 20 minutes on her care in total. [id number] Lasha Montero MD [place] [address] [address] 03/15/2024 09:57:18 03/18/2024 07:39:18 Abnormal uterine bleeding [id number] 9100 N93.9 Urinary symptoms 9889943 08 R39.9 Vaginal va ult bleeding 065528421 N93.9 This patient is a 39-year-ol d female who is approximat yohana 6-8 months postop from a hysterecto my. She has developed chronic granulatio n tissue at the Central portion of the vaginal cuff. We have tried to remedy the bleeding from this area with silver nitrate. The bleeding has persisted After 2 treatments with silver nitrate. Treatment with silver nitrate is painful. There may be adhesions and full-thick ness granulatio n tissue on the vagina and the abdominal side of the vaginal Cuff. I recommende d that we resect and revise the vaginal cuff. She agrees to that. The patient understand s the procedure. The procedure was described to the patient in great detail. the patient also understand s the risks. The risks were also explained in detail. She understand s that injuries May occur during surgery. She understand s these injuries can result in hospitaliz ation, more surgery, and severe illness. She understand s there is risk of hemorrhage and infection. Health Concerns Section Related Observation LastModified by Organization Detai ls LastModified Time None Recorded Concern Status LastModified by Organization Details LastModified Time None Recorded Advance Directives Directive N: Payers Encounter Date Sequence Insurance Name Policy Number Policy Ruano Covered Member ID Ruano Member ID Guarantor Name 01/24/2024 1 [employer] - [employer] LOC[employer] 36 (PPO) [id number] Armando Melgar [id number] Bernie Melgar 02/29/2024 1 [employer] 36 (PPO) [id number] Armando Melgar [id number] Bernie Melgar 03/05/2024 1 [employer] - [employer] [facility] 36 (PPO) [id number] Armando Melgar [id number] Bernie Melgar 03/06/2024 1 [employer] [facility] 36 (PPO) [id number] Armando Melgar [id number] Bernie Melgar 03/15/2024 1 [employer] - [employer] [facility] 36 (PPO) [id number] Armando Melgar [id number] Bernie Melgar Notes Date Note Type Note Provider Name and Address Organization Details Recorded Time 01/24/2024 text/html 39-year-old fema le with urinary symptoms, vaginal bleeding, foul-smelling vaginal discharge. Patient has had recurrent episodes of foul-smelling vaginal discharge. The discharge is excessive great colored. Swab was taken. Patient will be treated for BV. We talked about the antibiotic treatment. We are going to treat every month for 6 months. Talked about the risks, benefits, and alternatives. We agreed to the precautions and instructions. Patient has urinary symptoms. She has urinary urgency and frequency. Urine dip showed blood and leukocytes. We agreed to treat for urinary tract infection. We talked about the antibiotics. We end we talked about the risks, benefits, and alternatives. We discussed precautions and instructions. Vagina was examined for the vaginal bleeding. There was granulation tissue at the vaginal cuff. It was cauterized with silver nitrate. She will follow up in 3 weeks for examination of the vagina. Lasha Montero MD [address], [place], [address], [facility] 01/24/2024 16:28:43 02/29/2024 text/html 39-year-old fema zuleyka who presents for persistent , pain with intercourse, vaginal bleeding post hysterectomy. Patient has small amounts clear discharge from the nipples bilaterally. She does report some nipple stimulation during intercourse. She denies any headache or blurry vision or vision changes. Agreed to check labs, more specifically a prolactin. Patient has pain with intercourse. She has deep penetration pain in the pelvis. It is on the left side. Patient still has her ovaries. We agreed to pelvic ultrasound and to follow-up. We talked about we talked about her irregular bleeding. Her bleeding is spotting. It is intermittent. We previously treated some granulation tissue on the vaginal cuff. She has granulation tissue present again of the midline on the vaginal cuff. We used silver nitrate to attempt to obliterate the Abnormal tissue. I spent over 30 minutes on her care. She will follow up after ultrasound. Lasha Montero MD [address], [place], [address], [facility] 02/29/2024 15:59:30 03/06/2024 text/html this patient is a 39-year-old female Who presents for follow-up on ultrasound. She has had chronic pelvic pain since her hysterectomy. She has got granulation tissue at the middle portion of the vaginal cuff. This may represent a chronic inflammation that is full-thickness of the vagina and subsequent adhesion formation behind the vaginal cuff. She has had granulation tissue ablated with silver nitrate sticks twice now. If after each time she experiences nausea and abdominal discomfort. Ultrasound revealed a hemorrhagic cyst on the right. Her pain is primarily on the left. Normal ovary on the left. She is status post laparoscopic hysterectomy. We agreed to observe her bleeding and pain. We will repeat pelvic ultrasound to follow the 4 cm/3 cm hemorrhagic ovarian cyst on the right side. I spent over 20 minutes on her care in total. Lasha Montero MD [address], [place], [address], [facility] 03/06/2024 12:06:15 03/15/2024 text/html This patient is a 39-year-old female who is approximately 6-8 months postop from a hysterectomy. She has developed chronic granulation tissue at the Central portion of the vaginal cuff. We have tried to remedy the bleeding from this area with silver nitrate. The bleeding has persisted After 2 treatments with silver nitrate. Treatment with silver nitrate is painful. There may be adhesions and full-thickness granulation tissue on the vagina and the abdominal side of the vaginal Cuff. I recommended that we resect and revise the vaginal cuff. She agrees to that. The patient understands the procedure. The procedure was described to the patient in great detail. the patient also understands the risks. The risks were also explained in detail. She understands that injuries May occur during surgery. She understands these injuries can result in hospitalization, more surgery, and severe illness. She understands there is risk of hemorrhage and infection. Lasha Montero MD [address], [place], [address], [facility] 03/15/2024 17:44:12 OBGyn Episode Ob Episode Information Episode Created Date Number of Fetuses Patient Bloodtype Patient rh Status Prepregnancy Weight lbs Domestic Partner Domestic Partner Phone Father Name Discovery Manager Status 06/06/19 1 CLOSED Fetus Data First Name Last Name Admitted to NICU Weight (g) Sex Living Outcome Pediatric Complications Fetus ID Race Codes Race Delivery Type 3685.43 5 M Full Term [id number] Vaginal Delivery Elan Calculation Initial Elan Date Initial Exam Date Initial Exam Provider Initial Ultrasound Date Last Menstrual Period Date Ultra Sound Weeks Gestation 0 Eighteen To Twenty Week Elan Update Ultra Sound Date Fundal Height At Umbil Quickening Date Ultra Sound Latest Weeks Gestation Final Elan Confirmed By Final Elan Confirmed Date Final Elan Date Ultra Sound Latest Days Gestation 0 0 Menstrual History Last Menstrual Date Menses Monthly On Bcp Conception Prior Menses Frequency Hcg Plus Date Menarche Onset Age Delivery Information Delivery Date Delivery Type Labor Anesthesia Weeks Gestation Incision Type Labor Labor Length Hrs Delivered By Post Complications Tubal Sterilization Discharge Date Comments 8 37.3 Discharge Information Feeding Method Contraceptive Method Maternal HG B and HCT Levels Ob Episode Information Episode Created Date Number of Fetuses Patient Bloodtype Patient rh Status Prepregnancy Weight lbs Domestic Partner Domestic Partner Phone Father Name Discovery Manager Status 06/06/19 1 CLOSED Fetus Data First Name Last Name Admitted to NICU Weight (g) Sex Living Outcome Pediatric Complications Fetus ID Race Codes Race Delivery Type , Spontane ous [id number] Elan Calculation Initial Elan Date Initial Exam Date Initial Exam Provider Initial Ultrasound Date Last Menstrual Period Date Ultra Sound Weeks Gestation 0 Eighteen To Twenty Week Elan Update Ultra Sound Date Fundal Height At Umbil Quickening Date Ultra Sound Latest Weeks Gestation Final Elan Confirmed By Final Elan Confirmed Date Final Elan Date Ultra Sound Latest Days Gestation 0 0 Menstrual History Last Menstrual Date Menses Monthly On Bcp Conception Prior Menses Frequency Hcg Plus Date Menarche Onset Age Delivery Information Delivery Date Delivery Type Labor Anesthesia Weeks Gestation Incision Type Labor Labor Length Hrs Delivered By Post Complications Tubal Sterilization Discharge Date Comments 7 Discharge Information Feeding Method Contraceptive Method Maternal HG B and HCT Levels Ob Episode Information Episode Created Date Number of Fetuses Patient Bloodtype Patient rh Status Prepregnancy Weight lbs Domestic Partner Domestic Partner Phone Father Name Discovery Manager Status 06/06/19 24 1 CLOSED Fetus Data First Name Last Name Admitted to NICU Weight (g) Sex Living Outcome Pediatric Complications Fetus ID Race Codes Race Delivery Type 2664.85 3 M Prematur e [id number] Primary Elan Calculation Initial Elan Date Initial Exam Date Initial Exam Provider Initial Ultrasound Date Last Menstrual Period Date Ultra Sound Weeks Gestation 0 Eighteen To Twenty Week Elan Update Ultra Sound Date Fundal Height At Umbil Quickening Date Ultra Sound Latest Weeks Gestation Final Elan Confirmed By Final Elan Confirmed Date Final Elan Date Ultra Sound Latest Days Gestation 0 0 Menstrual History Last Menstrual Date Menses Monthly On Bcp Conception Prior Menses Frequency Hcg Plus Date Menarche Onset Age Delivery Information Delivery Date Delivery Type Labor Anesthesia Weeks Gestation Incision Type Labor Labor Length Hrs Delivered By Post Complications Tubal Sterilization Discharge Date Comments 2 35.3 Discharge Information Feeding Method Contraceptive Method Maternal HG B and HCT Levels
--- NOTE | 2024-03-27 06:31 | WPDANESEPPF ---
Anes - Initial Pre Proc Eval Procedure: Operation Date: 03/27/24 07:30 Proposed Procedures p Open Revision of Vaginal Cuff - Lasha Montero MD Date/Time: 03/27/24 06:31 Surgeon: Lasha Montero MD Pre Op Diagnosis: vaginal vault bleeding Patient Data Age: 39 Gender: F Height: 1.69 m Weight: 94 kg Allergies Allergy/AdvReac Type Severity Reaction Status Date / Time No Known Allergies Allergy Unknown Verified 03/20/24 09:32 Home Medications ?Medication ?Instructions ?Recorded ?Confirmed ?Type No Home Medications 03/20/24 03/20/24 History Patient hx anesthesia problems: none Family hx anesthesia problems: none Results Review: All pre-operative results and documents have been reviewed as part of the pre-operative evaluation. [facility] Past Medical History Medical History (Updated 03/27/24 @ 06:31 by Saeed Nagy MD) BMI 33.0-33.9,adult Chronic constipation Surgical History Surgical History (Updated 03/27/24 @ 06:31 by Saeed Nagy MD) H/O: hysterectomy Social History Social History Smoking status: Never smoker Alcohol intake: current Living arrangements: with family Spiritual care concerns: No Anes - Eval Final PreProcedure Day of Procedure 03/27/24 06:31 Patient weight: obese Heart: regular rate and rhythm Lungs: clear to auscultation Airway: Mallampati scale class II Neurological: alert and oriented Last oral intake: >/= 8 hours ASA classification: II Emergent: no Anesthetic plan: proceed Anesthesia type and monitoring: general ETT and standard monitoring Results Review: All pre-operative results and documents have been reviewed as part of the pre-operative evaluation. Informed Consent: The patient's anesthetic plan and its attendant risks and benefits were discussed with the patient/family/POA. Questions were solicited and answers provided to the satisfaction of the patient/family/POA.
[2024-03-27] MEDS: LACTATED RINGERS 1,000 ML 30 ML IV CONT ×2 (07:00→08:52)
--- NOTE | 2024-03-27 07:15 | WPDHPUPDATE1 ---
History and Physical Update Update Date/Time: 03/27/24 07:15 History and Physical has been reviewed, including an updated exam of the patient. There are NO changes in the patient's condition. Risks, benefits, and alternatives have been discussed and questions answered. Patient agrees to proceed with procedure.
[2024-03-27] MEDS: ACETAMINOPHEN 500 MG TABLET 1000 MG PO (07:23)
[2024-03-27] MEDS: KETOROLAC 15 MG/ML VIAL (*BKC) IV PUSH (07:23)
[2024-03-27] MEDS: ceFAZolin 2 GM/D5W 50 ML 2 GM/50 ML BAG IVPB (07:23)
--- NOTE | 2024-03-27 08:58 | W.PM.PROC2 ---
Procedure Note - Detailed Date of Procedure 03/27/24 Pre-op Diagnosis vaginal vault bleeding Post-op Diagnosis Same Procedure Performed Diagnostic laparoscopy Surgeon Lasha Montero MD Anesthesia General Indications Vaginal bleeding Findings Area of chronic inflammation with granulation tissue at the apex of the vagina in the middle portion of the vaginal cuff, adhesions between the small intestine and the vaginal cuff Description of Procedure The patient was taken to the operating room. She was prepped and draped in the dorsal lithotomy position after induction general anesthesia. A 5 mm incision was made with a scalpel on the abdominal skin in the left upper quadrant of the abdomen. A 5 mm trocar was inserted into the intra-abdominal cavity under direct visualization the scope. In the same fashion a 11 mm left lower quadrant trocar was inserted and a 11 mm infraumbilical trocar was inserted. The middle portion under the vaginal cuff was excised using cautery. Scissors were also used. A 4 x 2 cm area and the middle portion of the vaginal cuff was removed. The area was then reapproximated with suture. Bleeding areas along the lateral aspects of the excision were cauterized. The pelvis was irrigated. The pneumoperitoneum was reduced. The trocars were removed. Skin was closed with subcuticular 4 micro. The patient's incisions were covered with Dermabond. She was taken recovery room in stable condition. Sponge lap and needle counts were correct x2. Estimated Blood Loss 75 Packing No Pathology Yes Complications No immediate complications Condition Stable Disposition Same day
[2024-03-27] MEDS: fentaNYL CITRATE INJ (*CRX) 100 MCG/2 ML VIAL 25 MCG IV PUSH ×4 (09:13→09:22)
[2024-03-27] MEDS: oxyCODONE HCL (*CRX) 5 MG TAB IR PO (10:14)
== END 2024-03-27 12:00 | disposition home or self-care (01) ==
PROVIDERS: PCP Nurse Practitioner Family; Visit Provider Obstetrics & Gynecology
PROC: (CPT 58999; principal; 2024-03-27 07:30)
DX: N99.2 Postprocedural adhesions of vagina (principal); N93.9 Abnormal uterine and vaginal bleeding, unspecified; Y83.8 Other surgical procedures as the cause of abnormal reaction of the patient, or of later complication, without mention of misadventure at the time of the procedure; E66.9 Obesity, unspecified; Z68.32 Body mass index [BMI] 32.0-32.9, adult
CPT/HCPCS: 58999; 88304; A9270; J0690; J1596; J1885; J2003; J2004; J2250; J2405; J2704; J2710; J3010; J7030; J7120